=== PATIENT | female | born 1975 | race Two or more races ===

== ENCOUNTER 2018-11-15 07:45 | Inpatient (IN) | payer OTHER ==
[2018-11-15] MEDS ORDERED: ACETAMINOPHEN 1000 MG/100 ML VIAL (NON FORMULARY) IVPB ONE ×3 (08:12→22:00)
[2018-11-15] MEDS ORDERED: CEFTRIAXONE 2,000 MG in DEXTROSE 5%-WATER - 50 ML IVPB ONE (08:20)
[2018-11-15] MEDS ORDERED: ACETAMINOPHEN INJECTION 100 ML IVPB ONE ×2 (08:23→15:43)
[2018-11-15] MEDS ORDERED: CEFTRIAXONE 1 GM/50 ML BAG ONE (08:59)
[2018-11-15 09:09] LABS: BASO % 0.7 % (0-2.0); HEMATOCRIT 32.6 % (32.4-45.2); HEMOGLOBIN 11.2 GM/dL (10.7-15.3); LYMPH % 2.7 % (8-40); MCH 29.4 pg (25.7-33.7); MCHC 34.2 g/dl (32.0-36.0); MEAN CELL VOLUME 86.1 fl (80-96); MEAN PLT VOLUME 10.2 fl (7.5-11.1); NEUT % 92.6 % (42.8-82.8); PLATELET COUNT 175 K/MM3 (134-434); RBC 3.79 M/mm3 (3.60-5.2); RDW 13.5 % (11.6-15.6); WHITE BLOOD COUNT 6.7 K/mm3 (4.0-10.0)
[2018-11-15 09:14] LABS: VENOUS PH 7.46 (7.31-7.41)
[2018-11-15] MEDS ORDERED: SODIUM CHLORIDE 1,000 ML IV STA ×2 (09:14→11:03)
[2018-11-15 09:23] LABS: INR 1.34 (0.83-1.09); PROTHROMBIN TIME (PATIENT) 15.8 SEC (9.7-13.0)
[2018-11-15 09:26] LABS: ACTIVATED PTT 28.5 SECONDS (25.2-36.5)
[2018-11-15 09:40] LABS: ALBUMIN 2.8 g/dl (3.4-5.0); BILIRUBIN,TOTAL 0.6 mg/dL (0.2-1); BLOOD UREA NITROGEN 10.7 mg/dL (7-18); CALCIUM 7.6 mg/dL (8.5-10.1); CREATININE 0.6 mg/dL (0.55-1.3); POTASSIUM 3.4 mmol/L (3.5-5.1); TOT PROT 5.5 g/dl (6.4-8.2)
[2018-11-15 09:52] LABS: HYALINE CASTS 0 /lpf (0-8); PH,URINE 5.5 (5.0-8.0); URINE APPEARANCE CLOUDY; URINE BILIRUBIN NEGATIVE (NEGATIVE); URINE COLOR YELLOW; URINE GLUCOSE (UA) 3+ (NEGATIVE); URINE KETONE 3+ (NEGATIVE); URINE LEUK ESTERASE TRACE (NEGATIVE); URINE NITRITE POSITIVE (NEGATIVE); URINE PROTEIN 1+ (NEGATIVE); URINE RBC 1251 /hpf (0-4); URINE WBC 35 /hpf (0-5)
--- NOTE | 2018-11-15 10:58 | PDOC ---
Documentation entered by Allen Bradshaw SCRIBE, acting as scribe for Tano Rene MD. Tano Rene MD: This documentation has been prepared by the Augustine seo Daniel, SCRIBE, under my direction and personally reviewed by me in its entirety. I confirm that the documentation accurately reflects all work, treatment, procedures, and medical decision making performed by me. History of Present Illness - General Stated Complaint: DIABETIC History Source: Patient, EMS, Family Exam Limitations: No Limitations - History of Present Illness Initial Comments: 11/15/18 08:20 The patient is a year old female with a past medical history of diabetes brought in today by EMS for evaluation of AMS. The patient reports that she ran out of insulin 2 weeks ago and has not taken any since. As per EMS, the patient was unresponsive and hypotensive at home. Patient notes a headache which started yesterday and radiates from the left side of her head to the back of her head. She also notes back pain which is worse with deep breaths. Daughter notes that the patient was shivering at home as well. Patient denies lightheadedness. Denies fever, chills. Denies chest pain. Denies nausea, vomiting, diarrhea, abdominal pain. Denies travel. Allergies: ibuprofen Social history: Denies tobacco, alcohol, and illicit drug use. Past History - Past Medical History Allergies/Adverse Reactions: Allergies Allergy/AdvReac Type Severity Reaction Status Date / Time ibuprofen Allergy Severe Difficulty Verified 11/15/18 08:12 Breathing Home Medications: Ambulatory Orders Glimepiride 2 mg PO DAILY 10/01/15 metFORMIN HCL [Metformin HCl] 1,000 mg PO BID 10/01/15 Diabetes: Yes - Immunization History Immunization Up to Date: Yes - Psycho Social/Smoking Cessation Hx Smoking History: Never smoked Hx Alcohol Use: No Drug/Substance Use Hx: No Substance Use Type: None Review of Systems - Review of Systems Able to Perform ROS?: Yes Comments:: 11/15/18 08:20 CONSTITUTIONAL: +chills. No fever, no fatigue EYES: No visual changes ENT: No ear pain, no sore throat CARDIOVASCULAR: No chest pain, no palpitations RESPIRATORY: No cough, no SOB GI: No abdominal pain, no nausea, no vomiting, no constipation, no diarrhea GENITOURINARY: No dysuria, no frequency, no hematuria MUSKULOSKELETAL: +back pain. No joint pain, no myalgias SKIN: No rash NEURO: +headache *Physical Exam - Vital Signs Last Vital Signs Temp Pulse Resp BP Pulse Ox 103.6 F H 117 H 28 H 101/61 98 11/15/18 08:00 11/15/18 09:16 11/15/18 09:16 11/15/18 09:16 11/15/18 09:16 - Physical Exam Comments: 11/15/18 08:21 CONSTITUTIONAL: Well-appearing; well-nourished; in no apparent distress HEAD: Normocephalic; atraumatic EYES: PERRL; EOM intact; no photophobia ENMT: +dry mucous membranes. External appears normal; normal oropharynx NECK: supple. non-tender; no cervical lymphadenopathy CARD: Normal S1, S2; no murmurs, rubs, or gallops RESP: Normal chest excursion with respiration; breath sounds clear and equal bilaterally; no wheezes, rhonchi, or rales ABD: +mild left lower quadrant tenderness to deep palpation without guarding or rebound. Soft, non-distended; no palpable organomegaly, no palpable hernias EXT: Normal ROM in all four extremities; non-tender to palpation; distal pulses intact SKIN: Warm, dry, no rash NEURO: No focal neurological deficiencies. 11/15/18 10:15 on reassessment there are no more meningeal signs and mild suprapubic tenderness to palpation. Heart Score/ECG Review - ECG Intrepretation Comment:: 11/15/18 08:21 Sinus tachycadria ED Treatment Course - LABORATORY CBC & Chemistry Diagram: 11/15/18 08:36 11/15/18 08:36 - ADDITIONAL ORDERS Additional order review: Laboratory Results 11/15/18 07:54 POC Glucometer 411 11/15/18 07:54 POC Glucometer 411 - RADIOLOGY Radiology Studies Ordered: Category Date Time Status HEAD CT WITHOUT CONTRAST [CT] Stat CT Scan 11/15/18 08:20 Completed CHEST X-RAY PORTABLE* [RAD] Stat Radiology 11/15/18 08:11 Completed - Medications Given in the ED: ED Medications Discontinued Medications Generic Name Dose Route Start Last Admin Trade Name Freq PRN Reason Stop Dose Admin Acetaminophen 1,000 mg 11/15/18 08:12 11/15/18 08:30 Ofirmev Injection - IVPB 11/15/18 08:13 1,000 mg ONCE ONE Administration Ceftriaxone Sodium 2,000 mg/ 50 mls @ 100 mls/hr 11/15/18 08:20 11/15/18 09: 01 Dextrose IVPB 11/15/18 08:49 100 mls/hr ONCE ONE Administration Sodium Chloride 1,000 mls @ 1,000 mls/hr 11/15/18 09:14 11/15/18 09:21 Normal Saline - IV 11/15/18 10:13 1,000 mls/hr ASDIR STA Administration Medical Decision Making - Critical Care Time Total Critical Care Time (minutes): 50 Critical Care Statement: The care of this patient involved high complexity decision making to prevent further life threatening deterioration of the patient 's condition and/or to evaluate & treat vital organ system(s) failure or risk of failure. - Medical Decision Making 11/15/18 10:55 Patient is an ill-appearing 43-year-old female with history of diabetes who has been noncompliant with her insulin regimen (patient reports that she has been taking glyburide and metformin as prescribed) for the past 2 weeks. Upon arrival, patient was noted to be somnolent but easily arousable, follows commands, without evidence of meningismus, febrile to 103.6 and tachycardic with a heart rate of 120. EKG reveals evidence of sinus tachycardia but no other abnormalities. Serial abdominal exams revealed mild suprapubic tenderness only. Chest x-ray reveals no evidence of infiltrate or effusion. CBC reveals no significant leukocytosis, neutrophilia is noted. CMP reveals indeterminate troponin, but normal renal and hepatic functions. Urinalysis is consistent with nitrate positive pyuria. patient is received IV ceftriaxone. 2 L of normal saline have been administered as well. Anion gap is noted to be 11 and no indication for insulin drip are present at this time. DKA is also highly unlikely. Presence of beta hydroxybutyrate is consistent with elevated ketone bodies. We will continue to hydrate. Will administer cutaneous insulin. Will admit. 11/15/18 12:20 Patient is received 3 L of normal saline. Patient's blood pressure remains labile. Last known blood pressure is noted to be 97/61 with the MA P of 71. Will screen for the ICU for urosepsis and dehydration. 11/15/18 13:28 Patient accepted to the ICU. Patient's blood pressure remains labile. Will continue IV fluid boluses. Will place central line for possible pressor support. 11/15/18 15:48 Patient with Reiger's. Repeat rectal temp noted to be 1-1.8. Will administer additional IV acetaminophen. We will continue to hydrate. Central line placement confirmed by x-ray. No evidence of pneumothorax noted. Awaiting bed placement in the ICU. Discharge - Discharge Information Problems reviewed: Yes Clinical Impression/Diagnosis: Dehydration, Hyperglycemia Sepsis Qualifiers: Sepsis type: sepsis due to unspecified organism Sepsis acute organ dysfunction status: unspecified Qualified Code(s): A41.9 - Sepsis, unspecified organism Condition: Fair - Admission Yes - Follow up/Referral - Patient Discharge Instructions - Post Discharge Activity
[2018-11-15 11:00] LABS: ANISOCYTOSIS 0; MACROCYTOSIS 0; PLATELET ESTIMATE NORMAL
[2018-11-15] MEDS ORDERED: INSULIN REGULAR HUMAN 100 UNITS/ML *VIAL SQ ONE (11:04)
--- NOTE | 2018-11-15 12:11 | EKG ---
Test Reason : Blood Pressure : / mmHG Vent. Rate : 125 BPM Atrial Rate : 125 BPM P-R Int : 156 ms QRS Dur : 068 ms QT Int : 300 ms P-R-T Axes : 036 008 040 degrees QTc Int : 433 ms SINUS TACHYCARDIA OTHERWISE NORMAL ECG WHEN COMPARED WITH ECG OF 13-JUN-2013 23:09, NO SIGNIFICANT CHANGE WAS FOUND Confirmed by ZACK KHAN MD ([id number]) on 11/15/2018 12:11:04 PM Referred By: Confirmed By:ZACK KHAN MD
[2018-11-15] MEDS ORDERED: POTASSIUM CHLORIDE TABS 20 MEQ TABLET.ER (FP) PO ONE ×2 (12:28→14:05)
[2018-11-15] MEDS ORDERED: DEXTROSE 5%-0.45% SALINE 1,000 ML IV SCH (12:30)
[2018-11-15] MEDS ORDERED: SODIUM CHLORIDE 1,000 ML IV SCH (12:30)
--- NOTE | 2018-11-15 14:09 | CONSULT ---
Consultation: REQUESTING PROVIDER: Dr. Rnee CONSULT REQUEST: We have been asked to medically evaluate this patient for persistent hypotension HISTORY OF PRESENT ILLNESS: 43 y/o F with PMH IDDM and asthma (currently not on tx), who presented after being found unresponsive today. Per daughter, over the last two weeks, pt did not take her insulin since "it had not been refrigerated". During this past week , she felt unwell, and more acutely lethargic with chills today. Daughter states pt was lying down in bed when she became to shiver uncontrollably and then she became unresponsive. EMS was called and on arrival, pt w/ BP systolic in 70's. In [facility] ED, she was found to have a temp of 103.6F, labile BP ~80/50, tachycardic to 120's, and received 3L boluses without adequate improvement in BP. During this time, pt also endorses sharp L sided headache, which she describes as throbbing. Also with high subjective fever at home, mild dysuria and pleuritic chest pain. No photophobia or focal neurological deficits. Denies recent travel, sick contacts, SOB, chest pain or pressure or changes in bowel function. ICU consulted for persistent hypotension, despite 3L NS boluses and cont'd lethargy. +R IJ placed in ER. PMH: as above PsxH: denies meds: metformin 1000mg BID, glyburide 2mg qd, lantus 16mg qd per daughter allergies: ibuprofen - low BP FH: grandparents - DM SH: stay at mom . denies cigarette, alcohol, recreational use REVIEW OF SYSTEMS: +SORTO +dysuria +fever PHYSICAL EXAMINATION Vital Signs 11/15/18 11/15/18 11/15/18 10:39 10:55 11:49 Temperature 98.7 F Pulse Rate Pulse Rate [ 103 H 105 H 98 H Left Radial] Respiratory 18 18 20 Rate Blood Pressure Blood Pressure 97/61 97/62 87/59 L [Right Arm] O2 Sat by Pulse 97 98 97 Oximetry (%) 11/15/18 11/15/18 12:02 12:18 Temperature Pulse Rate Pulse Rate [ 101 H Left Radial] Respiratory 20 14 Rate Blood Pressure Blood Pressure 97/61 [Right Arm] O2 Sat by Pulse 97 100 Oximetry (%) GENERAL: Lethargic. in NAD HEAD: Normal with no signs of trauma. EYES: Pupils equal, round and reactive to light, extraocular movements intact, sclera anicteric, conjunctiva clear. EARS, NOSE, THROAT: Ears normal, nares patent, oropharynx clear without exudates. Moist mucous membranes. NECK: Normal range of motion, supple LUNGS: Breath sounds equal, clear to auscultation bilaterally. No wheezes, and no crackles. HEART: +tachycardic rate and rhythm, normal S1 and S2 without murmur, rub or gallop. ABDOMEN: Soft, +suprapubic tenderness, not distended, normoactive bowel sounds, no guarding LOWER EXTREMITIES: 2+ pt pulses, warm, no peripheral edema. NEUROLOGICAL: Cranial nerves II-XII intact. Normal speech. Lethargic PSYCHIATRIC: Cooperative. SKIN: Warm, dry Laboratory Results 11/15/18 11/15/18 11/15/18 08:36 08:36 08:36 WBC 6.7 Hgb 11.2 Hct 32.6 Plt Count 175 D Sodium 137 Potassium 3.4 L Chloride 106 Carbon Dioxide 21 BUN 10.7 Creatinine 0.6 Troponin I 0.19 H Beta-Hydroxybutyrate 26.1 H Urine Nitrite Urine WBC (Auto) Urine Bacteria (Auto) 11/15/18 09:03 Beta-Hydroxybutyrate Urine Nitrite Positive H D Urine WBC (Auto) 35 Urine Bacteria (Auto) 1777.0 EKG: +sinus tach, rate 125 bpm, qtc 433ms CXR: without acute abnormality Head CT: (-) ASSESSMENT/PLAN: 43 y/o F with PMH IDDM and asthma (currently not on tx), who presented after being found unresponsive today. In [facility] ED, she was found to have a temp of 103.6F, labile BP ~80/50, tachycardia to 120's, and received 3L boluses without adequate improvement in BP. ICU consulted for persistent hypotension, despite 3L NS boluses and cont'd lethargy. #Neuro -AAO x 3, however lethargic #ID R/o septic shock 2/2 UTI -with dysuria. initially febrile to 103.6F, hypotensive despite 3L NS -may require pressor support. +R IJ placed in ER today (11/15) -f/u CVP; bolus as needed -c/w rocephin IVPB qd. received 2g in ED d/t concern for meningitis, however pt w/ improved status less likely -f/u ucx, blood cx, lactic -c/w IVF; NS 100 cc/hr -has possible demand ischemia #Cardio Demand ischemia possible 2/2 sepsis -initial trop 0.19. c/t trend until peak #Pulm R/o PE -CTA (-) for PE Asthma -currently not in exacerbation -will start ventolin PRN #Endocrine IDDM -f/u a1c -c/w ISS, BGM ACHS -hold home hypoglycemic agents #F/E/N IV NS 100 cc/hr continue to follow lytes Diabetic diet #Lines/tubes + R IJ placed 11/15 #Code status Full code #PPX DVT: hep 5k SQ tid #Dispo admitted to ICU Dispo: We will continue to follow the patient. Thank you for this consultative opportunity. Visit type - Emergency Visit Emergency Visit: Yes Care time: The patient presented to the Emergency Department on the above date and was hospitalized for further evaluation of their emergent condition. - New Patient This patient is new to me today: Yes Date on this admission: 11/15/18 - Critical Care Critical Care patient: Yes Total Critical Care Time (in minutes): 45 Critical Care Statement: The care of this patient involved high complexity decision making to prevent further life threatening deterioration of the patient 's condition and/or to evaluate & treat vital organ system(s) failure or risk of failure.
--- NOTE | 2018-11-15 14:10 | PDOC ---
*Physical Exam - Vital Signs Last Vital Signs Temp Pulse Resp BP Pulse Ox 98.7 F 101 H 14 97/61 100 11/15/18 10:55 11/15/18 12:18 11/15/18 12:18 11/15/18 12:18 11/15/18 12:18 ED Treatment Course - LABORATORY CBC & Chemistry Diagram: 11/15/18 08:36 11/15/18 08:36 - ADDITIONAL ORDERS Additional order review: Laboratory Results 11/15/18 11/15/18 11/15/18 10:57 09:03 09:02 PT with INR INR PTT (Actin FS) VBG pH POC VBG pCO2 POC VBG pO2 VBG HCO3 VBG O2 Sat (Win) VBG Base Excess Sodium Potassium Chloride Carbon Dioxide Anion Gap BUN Creatinine Est GFR (CKD-EPI)AfAm Est GFR (CKD-EPI)NonAf POC Glucometer 289 Random Glucose Lactic Acid 1.6 Calcium Total Bilirubin AST ALT Alkaline Phosphatase Troponin I Total Protein Albumin Beta-Hydroxybutyrate Serum , Qual Urine Color Yellow Urine Appearance Cloudy Urine pH 5.5 Ur Specific [place] 1.021 Urine Protein 1+ H Urine Glucose (UA) 3+ H Urine Ketones 3+ H Urine Blood 3+ H Urine Nitrite Positive H D Urine Bilirubin Negative Urine Urobilinogen 1.0 Ur Leukocyte Esterase Trace Urine WBC (Auto) 35 Urine RBC (Auto) 1251 Urine Casts (Auto) 0 U Epithel Cells (Auto) 1.0 Urine Bacteria (Auto) 1777.0 11/15/18 11/15/18 11/15/18 08:36 08:36 08:36 PT with INR INR PTT (Actin FS) VBG pH 7.46 H POC VBG pCO2 26.0 L POC VBG pO2 147 H VBG HCO3 18.4 L VBG O2 Sat (Win) 97.3 H VBG Base Excess -3.8 L Sodium Potassium Chloride Carbon Dioxide Anion Gap BUN Creatinine Est GFR (CKD-EPI)AfAm Est GFR (CKD-EPI)NonAf POC Glucometer Random Glucose Lactic Acid Calcium Total Bilirubin AST ALT Alkaline Phosphatase Troponin I Total Protein Albumin Beta-Hydroxybutyrate 26.1 H Serum , Qual Negative Urine Color Urine Appearance Urine pH Ur Specific [place] Urine Protein Urine Glucose (UA) Urine Ketones Urine Blood Urine Nitrite Urine Bilirubin Urine Urobilinogen Ur Leukocyte Esterase Urine WBC (Auto) Urine RBC (Auto) Urine Casts (Auto) U Epithel Cells (Auto) Urine Bacteria (Auto) 11/15/18 11/15/18 11/15/18 08:36 08:36 07:54 PT with INR 15.80 H INR 1.34 H PTT (Actin FS) 28.5 VBG pH POC VBG pCO2 POC VBG pO2 VBG HCO3 VBG O2 Sat (Win) VBG Base Excess Sodium 137 Potassium 3.4 L Chloride 106 Carbon Dioxide 21 Anion Gap 11 BUN 10.7 Creatinine 0.6 Est GFR (CKD-EPI)AfAm 129.39 Est GFR (CKD-EPI)NonAf 111.64 POC Glucometer 411 Random Glucose 354 H Lactic Acid Calcium 7.6 L Total Bilirubin 0.6 AST 20 ALT 22 Alkaline Phosphatase 117 Troponin I 0.19 H Total Protein 5.5 L Albumin 2.8 L Beta-Hydroxybutyrate Serum , Qual Urine Color Urine Appearance Urine pH Ur Specific [place] Urine Protein Urine Glucose (UA) Urine Ketones Urine Blood Urine Nitrite Urine Bilirubin Urine Urobilinogen Ur Leukocyte Esterase Urine WBC (Auto) Urine RBC (Auto) Urine Casts (Auto) U Epithel Cells (Auto) Urine Bacteria (Auto) 11/15/18 11/15/18 11/15/18 10:57 08:36 07:54 RBC 3.79 MCV 86.1 MCHC 34.2 RDW 13.5 MPV 10.2 Neutrophils % 92.6 H D Lymphocytes % 2.7 L D Monocytes % 4.0 Eosinophils % 0.0 D Basophils % 0.7 POC Glucometer 289 411 - Medications Given in the ED: ED Medications Discontinued Medications Generic Name Dose Route Start Last Admin Trade Name Mikki PRN Reason Stop Dose Admin Acetaminophen 1,000 mg 11/15/18 08:12 11/15/18 08:30 Ofirmev Injection - IVPB 11/15/18 08:13 1,000 mg ONCE ONE Administration Ceftriaxone Sodium 2,000 mg/ 50 mls @ 100 mls/hr 11/15/18 08:20 11/15/18 09: 01 Dextrose IVPB 11/15/18 08:49 100 mls/hr ONCE ONE Administration Sodium Chloride 1,000 mls @ 1,000 mls/hr 11/15/18 09:14 11/15/18 09:21 Normal Saline - IV 11/15/18 10:13 1,000 mls/hr ASDIR STA Administration Sodium Chloride 1,000 mls @ 1,000 mls/hr 11/15/18 11:03 11/15/18 11:15 Normal Saline - IV 11/15/18 12:02 1,000 mls/hr ASDIR STA Administration Insulin Human Regular 5 units 11/15/18 11:04 11/15/18 11:51 Novolin R Vial *For Ivpush Or Iv Drip Only* SQ 11/15/18 11:05 5 units ONCE ONE Administration Medical Decision Making - Medical Decision Making 11/15/18 14:10 Central line placed as below. Discharge - Discharge Information Problems reviewed: Yes Clinical Impression/Diagnosis: Infection - Follow up/Referral Referrals: Liudmila Lee MD [Primary Care Provider] - - Patient Discharge Instructions - Post Discharge Activity Procedures - Central Line Central Line Lumen: triple Central Line Position: internal jugular (R) Anesthesia: 1% Lidocaine Amount of anesthesia (ccs): 2 Complications: none Post Central Line Insertion: sutured, good blood return, position confirmed w/ CXR
[2018-11-15] MEDS: SODIUM CHLORIDE 1,000 ML IV SCH (14:11)
[2018-11-15] MEDS: HEPARIN NA (PORCINE) 5,000 UNITS/ML 1ML VIAL SQ SCH ×2 (14:12→17:36)
[2018-11-15] MEDS ORDERED: ALBUTEROL SO4 0.083% IH SOL 2.5 MG/3 ML VIAL.NEB. NEB PRN (14:41)
[2018-11-15] MEDS: INSULIN SLIDING SCALE (NOVOLOG) 1 VIAL SQ SCH ×2 (16:37→22:36)
[2018-11-15 16:44] VITALS: BMI 23.3
[2018-11-15] MEDS ORDERED: FLU VACCINE QUAD 60 MCG/0.5 ML (MDV 19-20) IM ONE (16:46)
--- NOTE | 2018-11-15 19:50 | HP ---
Admitting History and Physical - Primary Care Physician PCP: Tiffanie Medrano - Admission History of Present Illness: The patient is a year old female with a past medical history of diabetes brought in today by EMS for evaluation of AMS. The patient reports that she ran out of insulin 2 weeks ago and has not taken any since. As per EMS, the patient was unresponsive and hypotensive at home. Patient notes a headache which started yesterday and radiates from the left side of her head to the back of her head. She also notes back pain which is worse with deep breaths. Daughter notes that the patient was shivering at home as well. - Past Medical History ...: No - Smoking History Smoking history: Never smoked Have you smoked in the past 12 months: No - Alcohol/Substance Use Hx Alcohol Use: No Home Medications - Allergies Allergies/Adverse Reactions: Allergies Allergy/AdvReac Type Severity Reaction Status Date / Time ibuprofen Allergy Severe Difficulty Verified 11/15/18 08:12 Breathing - Home Medications Home Medications: Ambulatory Orders Glimepiride 2 mg PO DAILY 10/01/15 metFORMIN HCL [Metformin HCl] 1,000 mg PO BID 10/01/15 Physical Examination Vital Signs: Vital Signs Temperature 101.3 F H 11/15/18 15:55 Pulse Rate 120 H 11/15/18 18:00 Respiratory Rate 18 11/15/18 18:00 Blood Pressure 112/68 11/15/18 18:00 O2 Sat by Pulse Oximetry (%) 100 11/15/18 15:55 Constitutional: Yes: No Distress HENT: Yes: Atraumatic Neck: Yes: Supple Cardiovascular: Yes: Regular Rate and Rhythm Respiratory: Yes: CTA Bilaterally Gastrointestinal: Yes: Normal Bowel Sounds Extremities: Yes: WNL Edema: No Neurological: Yes: Alert, Oriented Labs: CBC, BMP 11/15/18 08:36 11/15/18 08:36 Problem List - Problems (1) Dehydration Assessment/Plan: ivf Code(s): E86.0 - DEHYDRATION (2) Hyperglycemia Assessment/Plan: iv insulin bgms Code(s): R73.9 - HYPERGLYCEMIA, UNSPECIFIED (3) Sepsis Assessment/Plan: iv abx cxs noted Code(s): A41.9 - SEPSIS, UNSPECIFIED ORGANISM Qualifiers: Sepsis type: sepsis due to unspecified organism Sepsis acute organ dysfunction status: unspecified Qualified Code(s): A41.9 - Sepsis, unspecified organism (4) UTI (urinary tract infection) Code(s): N39.0 - URINARY TRACT INFECTION, SITE NOT SPECIFIED Assessment/Plan Laboratory Tests 11/15/18 11/15/18 11/15/18 07:54 08:36 08:36 WBC 6.7 RBC 3.79 Hgb 11.2 Hct 32.6 MCV 86.1 MCH 29.4 MCHC 34.2 RDW 13.5 Plt Count 175 D MPV 10.2 Absolute Neuts (auto) 6.2 Neutrophils % 92.6 H D Neutrophils % (Manual) 88.0 H Band Neutrophils % 6.0 Lymphocytes % 2.7 L D Lymphocytes % (Manual) 2.0 L Monocytes % 4.0 Monocytes % (Manual) 2 L Eosinophils % 0.0 D Eosinophils % (Manual) 0.0 Basophils % 0.7 Basophils % (Manual) 1.0 Myelocytes % (Man) 0 Promyelocytes % (Man) 0 Blast Cells % (Manual) 0 Nucleated RBC % 0 Metamyelocytes 0 Hypochromia 0 Platelet Estimate Normal Polychromasia 0 Poikilocytosis 0 Anisocytosis 0 Microcytosis 0 Macrocytosis 0 PT with INR 15.80 H INR 1.34 H PTT (Actin FS) 28.5 VBG pH POC VBG pCO2 POC VBG pO2 VBG HCO3 VBG O2 Sat (Win) VBG Base Excess Sodium Potassium Chloride Carbon Dioxide Anion Gap BUN Creatinine Est GFR (CKD-EPI)AfAm Est GFR (CKD-EPI)NonAf POC Glucometer 411 Random Glucose Hemoglobin A1c % Lactic Acid Calcium Total Bilirubin AST ALT Alkaline Phosphatase Troponin I Total Protein Albumin Beta-Hydroxybutyrate Serum , Qual Urine Color Urine Appearance Urine pH Ur Specific [place] Urine Protein Urine Glucose (UA) Urine Ketones Urine Blood Urine Nitrite Urine Bilirubin Urine Urobilinogen Ur Leukocyte Esterase Urine WBC (Auto) Urine RBC (Auto) Urine Casts (Auto) U Epithel Cells (Auto) Urine Bacteria (Auto) HIV 1&2 Antibody Screen HIV P24 Antigen 11/15/18 11/15/18 11/15/18 08:36 08:36 08:36 WBC RBC Hgb Hct MCV MCH MCHC RDW Plt Count MPV Absolute Neuts (auto) Neutrophils % Neutrophils % (Manual) Band Neutrophils % Lymphocytes % Lymphocytes % (Manual) Monocytes % Monocytes % (Manual) Eosinophils % Eosinophils % (Manual) Basophils % Basophils % (Manual) Myelocytes % (Man) Promyelocytes % (Man) Blast Cells % (Manual) Nucleated RBC % Metamyelocytes Hypochromia Platelet Estimate Polychromasia Poikilocytosis Anisocytosis Microcytosis Macrocytosis PT with INR INR PTT (Actin FS) VBG pH 7.46 H POC VBG pCO2 26.0 L POC VBG pO2 147 H VBG HCO3 18.4 L VBG O2 Sat (Win) 97.3 H VBG Base Excess -3.8 L Sodium 137 Potassium 3.4 L Chloride 106 Carbon Dioxide 21 Anion Gap 11 BUN 10.7 Creatinine 0.6 Est GFR (CKD-EPI)AfAm 129.39 Est GFR (CKD-EPI)NonAf 111.64 POC Glucometer Random Glucose 354 H Hemoglobin A1c % Lactic Acid Calcium 7.6 L Total Bilirubin 0.6 AST 20 ALT 22 Alkaline Phosphatase 117 Troponin I 0.19 H Total Protein 5.5 L Albumin 2.8 L Beta-Hydroxybutyrate 26.1 H Serum , Qual Urine Color Urine Appearance Urine pH Ur Specific [place] Urine Protein Urine Glucose (UA) Urine Ketones Urine Blood Urine Nitrite Urine Bilirubin Urine Urobilinogen Ur Leukocyte Esterase Urine WBC (Auto) Urine RBC (Auto) Urine Casts (Auto) U Epithel Cells (Auto) Urine Bacteria (Auto) HIV 1&2 Antibody Screen HIV P24 Antigen 11/15/18 11/15/18 11/15/18 08:36 09:02 09:03 WBC RBC Hgb Hct MCV MCH MCHC RDW Plt Count MPV Absolute Neuts (auto) Neutrophils % Neutrophils % (Manual) Band Neutrophils % Lymphocytes % Lymphocytes % (Manual) Monocytes % Monocytes % (Manual) Eosinophils % Eosinophils % (Manual) Basophils % Basophils % (Manual) Myelocytes % (Man) Promyelocytes % (Man) Blast Cells % (Manual) Nucleated RBC % Metamyelocytes Hypochromia Platelet Estimate Polychromasia Poikilocytosis Anisocytosis Microcytosis Macrocytosis PT with INR INR PTT (Actin FS) VBG pH POC VBG pCO2 POC VBG pO2 VBG HCO3 VBG O2 Sat (Win) VBG Base Excess Sodium Potassium Chloride Carbon Dioxide Anion Gap BUN Creatinine Est GFR (CKD-EPI)AfAm Est GFR (CKD-EPI)NonAf POC Glucometer Random Glucose Hemoglobin A1c % Lactic Acid 1.6 Calcium Total Bilirubin AST ALT Alkaline Phosphatase Troponin I Total Protein Albumin Beta-Hydroxybutyrate Serum , Qual Negative Urine Color Yellow Urine Appearance Cloudy Urine pH 5.5 Ur Specific [place] 1.021 Urine Protein 1+ H Urine Glucose (UA) 3+ H Urine Ketones 3+ H Urine Blood 3+ H Urine Nitrite Positive H D Urine Bilirubin Negative Urine Urobilinogen 1.0 Ur Leukocyte Esterase Trace Urine WBC (Auto) 35 Urine RBC (Auto) 1251 Urine Casts (Auto) 0 U Epithel Cells (Auto) 1.0 Urine Bacteria (Auto) 1777.0 HIV 1&2 Antibody Screen HIV P24 Antigen 11/15/18 11/15/18 11/15/18 09:05 10:57 13:50 WBC RBC Hgb Hct MCV MCH MCHC RDW Plt Count MPV Absolute Neuts (auto) Neutrophils % Neutrophils % (Manual) Band Neutrophils % Lymphocytes % Lymphocytes % (Manual) Monocytes % Monocytes % (Manual) Eosinophils % Eosinophils % (Manual) Basophils % Basophils % (Manual) Myelocytes % (Man) Promyelocytes % (Man) Blast Cells % (Manual) Nucleated RBC % Metamyelocytes Hypochromia Platelet Estimate Polychromasia Poikilocytosis Anisocytosis Microcytosis Macrocytosis PT with INR INR PTT (Actin FS) VBG pH POC VBG pCO2 POC VBG pO2 VBG HCO3 VBG O2 Sat (Win) VBG Base Excess Sodium Potassium Chloride Carbon Dioxide Anion Gap BUN Creatinine Est GFR (CKD-EPI)AfAm Est GFR (CKD-EPI)NonAf POC Glucometer 289 Random Glucose Hemoglobin A1c % 13.3 H Lactic Acid Calcium Total Bilirubin AST ALT Alkaline Phosphatase Troponin I Total Protein Albumin Beta-Hydroxybutyrate Serum , Qual Urine Color Urine Appearance Urine pH Ur Specific [place] Urine Protein Urine Glucose (UA) Urine Ketones Urine Blood Urine Nitrite Urine Bilirubin Urine Urobilinogen Ur Leukocyte Esterase Urine WBC (Auto) Urine RBC (Auto) Urine Casts (Auto) U Epithel Cells (Auto) Urine Bacteria (Auto) HIV 1&2 Antibody Screen Negative HIV P24 Antigen Negative 11/15/18 11/15/18 11/15/18 14:30 14:31 16:29 WBC RBC Hgb Hct MCV MCH MCHC RDW Plt Count MPV Absolute Neuts (auto) Neutrophils % Neutrophils % (Manual) Band Neutrophils % Lymphocytes % Lymphocytes % (Manual) Monocytes % Monocytes % (Manual) Eosinophils % Eosinophils % (Manual) Basophils % Basophils % (Manual) Myelocytes % (Man) Promyelocytes % (Man) Blast Cells % (Manual) Nucleated RBC % Metamyelocytes Hypochromia Platelet Estimate Polychromasia Poikilocytosis Anisocytosis Microcytosis Macrocytosis PT with INR INR PTT (Actin FS) VBG pH POC VBG pCO2 POC VBG pO2 VBG HCO3 VBG O2 Sat (Win) VBG Base Excess Sodium Potassium Chloride Carbon Dioxide Anion Gap BUN Creatinine Est GFR (CKD-EPI)AfAm Est GFR (CKD-EPI)NonAf POC Glucometer 237 258 Random Glucose Hemoglobin A1c % Lactic Acid Calcium Total Bilirubin AST ALT Alkaline Phosphatase Troponin I 0.19 H Total Protein Albumin Beta-Hydroxybutyrate Serum , Qual Urine Color Urine Appearance Urine pH Ur Specific [place] Urine Protein Urine Glucose (UA) Urine Ketones Urine Blood Urine Nitrite Urine Bilirubin Urine Urobilinogen Ur Leukocyte Esterase Urine WBC (Auto) Urine RBC (Auto) Urine Casts (Auto) U Epithel Cells (Auto) Urine Bacteria (Auto) HIV 1&2 Antibody Screen HIV P24 Antigen Active Medications Generic Name Dose Route Start Last Admin Trade Name Freq PRN Reason Stop Dose Admin Albuterol Sulfate 1 amp 11/15/18 14:41 Ventolin 0.083% Nebulizer Soln - NEB Q4H PRN SHORT OF BREATH/WHEEZING Chlorhexidine Gluconate 1 applic 11/15/18 22:00 Hibiclens For Decolonization - TP HS PHILLIP Heparin Sodium (Porcine) 5,000 unit 11/15/18 14:00 11/15/18 17:36 Heparin - SQ 5,000 unit Q8H-IV PHILLIP Administration Sodium Chloride 1,000 mls @ 150 mls/hr 11/15/18 12:30 11/15/18 12:48 Normal Saline - IV 150 mls/hr ASDIR PHILLIP Administration Sodium Chloride 1,000 mls @ 100 mls/hr 11/15/18 14:00 11/15/18 14:11 Normal Saline - IV 100 mls/hr ASDIR PHILLIP Administration Ceftriaxone Sodium 1 gm/ 50 mls @ 100 mls/hr 11/16/18 10:00 Dextrose IVPB DAILY PHILLIP Insulin Aspart 1 vial 11/15/18 16:30 11/15/18 16:37 Novolog Vial Sliding Scale - SQ 6 units ACHS PHILLIP Administration Protocol Mupirocin 1 applic 11/15/18 22:00 Bactroban Ointment (For Decolonization) - NS 11/20/18 21:59 BID PHILLIP
[2018-11-15] MEDS: CHLORHEXIDINE GLUCONATE 4% CLEANSER FOR DECOLONIZATION TP SCH (22:15)
[2018-11-15] MEDS: MUPIROCIN 2% TOPICAL OINTMENT FOR DECOLONIZATION NS SCH (22:39)
[2018-11-16] MEDS: HEPARIN NA (PORCINE) 5,000 UNITS/ML 1ML VIAL SQ SCH ×3 (02:36→18:55)
[2018-11-16] MEDS ORDERED: ACETAMINOPHEN 1000 MG/100 ML VIAL (NON FORMULARY) IVPB ONE ×2 (05:22→11:46)
[2018-11-16] MEDS: INSULIN SLIDING SCALE (NOVOLOG) 1 VIAL SQ SCH ×4 (06:06→22:55)
[2018-11-16 06:40] LABS: HEMATOCRIT 30.2 % (32.4-45.2); HEMOGLOBIN 10.5 GM/dL (10.7-15.3); LYMPH % 7.4 % (8-40); MCH 29.9 pg (25.7-33.7); MCHC 34.8 g/dl (32.0-36.0); MEAN PLT VOLUME 10.2 fl (7.5-11.1); MONO % 6.5 % (3.8-10.2); NEUT % 85.1 % (42.8-82.8); PLATELET COUNT 158 K/MM3 (134-434); RBC 3.51 M/mm3 (3.60-5.2); RDW 13.5 % (11.6-15.6); WHITE BLOOD COUNT 4.7 K/mm3 (4.0-10.0)
[2018-11-16 06:54] LABS: BLOOD UREA NITROGEN 3.7 mg/dL (7-18); CALCIUM 7.5 mg/dL (8.5-10.1); CREATININE 0.4 mg/dL (0.55-1.3); MAGNESIUM 1.7 mg/dL (1.8-2.4); PHOSPHOROUS 1.4 mg/dL (2.5-4.9); POTASSIUM 3.3 mmol/L (3.5-5.1)
[2018-11-16] MEDS ORDERED: POTASSIUM CHLORIDE 20 MEQ PREMIX IVPB 100 ML IVPB ONE (07:45)
[2018-11-16] MEDS ORDERED: POTASSIUM PHOSPHATE 20 MM in SODIUM CHLORIDE 250 ML IVPB ONE (07:55)
[2018-11-16] MEDS ORDERED: MAGNESIUM SULF 50% (8.12 MEQ/2 ML-1 GM VIAL) IVPB ONE (07:56)
[2018-11-16] MEDS ORDERED: cefTRIAXone SODIUM 1 GM VIAL ONE (08:00)
[2018-11-16] MEDS ORDERED: MAGNESIUM 1GM/D5W - 1 GM/100 ML IVPB IVPB ONE (08:00)
[2018-11-16] MEDS ORDERED: DEXTROSE 5%-WATER - 50 ML IVPB ONE (08:01)
--- NOTE | 2018-11-16 08:32 | PN ---
Physical Exam: SUBJECTIVE: Patient seen and examined at bedside in the ICU. Reports that her abdominal pain has improved. Denies chest pain/shortness of breath. Alert and oriented x3. OBJECTIVE: Vital Signs Period Temp Pulse Resp BP Sys/Gastelum Pulse Ox Last 24 Hr 98.7 F-103 F 95-128 12-29 85-164/55-92 97-100 GENERAL: The patient is awake, alert, and fully oriented, in no acute distress. HEAD: Normal with no signs of trauma. EYES: PERRL, extraocular movements intact, sclera anicteric, conjunctiva clear. No ptosis. ENT: Ears normal, nares patent, oropharynx clear without exudates, moist mucous membranes. NECK: Trachea midline, full range of motion, supple. LUNGS: Breath sounds equal, clear to auscultation bilaterally, no wheezes, no crackles, no accessory muscle use. HEART: Regular rate and rhythm, S1, S2 without murmur, rub or gallop. ABDOMEN: Soft, nontender, nondistended, normoactive bowel sounds, no guarding, no rebound, no hepatosplenomegaly, no masses. EXTREMITIES: 2+ pulses, warm, well-perfused, no edema. NEUROLOGICAL: Cranial nerves II through XII grossly intact. PSYCH: Normal mood, normal affect. SKIN: Warm, dry, normal turgor, no rashes or lesions noted Laboratory Results - last 24 hr 11/15/18 11/15/18 11/15/18 08:36 08:36 08:36 WBC 6.7 RBC 3.79 Hgb 11.2 Hct 32.6 MCV 86.1 MCH 29.4 MCHC 34.2 RDW 13.5 Plt Count 175 D MPV 10.2 Absolute Neuts (auto) 6.2 Neutrophils % 92.6 H D Neutrophils % (Manual) 88.0 H Band Neutrophils % 6.0 Lymphocytes % 2.7 L D Lymphocytes % (Manual) 2.0 L Monocytes % 4.0 Monocytes % (Manual) 2 L Eosinophils % 0.0 D Eosinophils % (Manual) 0.0 Basophils % 0.7 Basophils % (Manual) 1.0 Myelocytes % (Man) 0 Promyelocytes % (Man) 0 Blast Cells % (Manual) 0 Nucleated RBC % 0 Metamyelocytes 0 Hypochromia 0 Platelet Estimate Normal Polychromasia 0 Poikilocytosis 0 Anisocytosis 0 Microcytosis 0 Macrocytosis 0 PT with INR 15.80 H INR 1.34 H PTT (Actin FS) 28.5 VBG pH POC VBG pCO2 POC VBG pO2 VBG HCO3 VBG O2 Sat (Win) VBG Base Excess Sodium 137 Potassium 3.4 L Chloride 106 Carbon Dioxide 21 Anion Gap 11 BUN 10.7 Creatinine 0.6 Est GFR (CKD-EPI)AfAm 129.39 Est GFR (CKD-EPI)NonAf 111.64 POC Glucometer Random Glucose 354 H Hemoglobin A1c % Lactic Acid Calcium 7.6 L Phosphorus Magnesium Total Bilirubin 0.6 AST 20 ALT 22 Alkaline Phosphatase 117 Troponin I 0.19 H Total Protein 5.5 L Albumin 2.8 L Beta-Hydroxybutyrate Serum , Qual Urine Color Urine Appearance Urine pH Ur Specific [place] Urine Protein Urine Glucose (UA) Urine Ketones Urine Blood Urine Nitrite Urine Bilirubin Urine Urobilinogen Ur Leukocyte Esterase Urine WBC (Auto) Urine RBC (Auto) Urine Casts (Auto) U Epithel Cells (Auto) Urine Bacteria (Auto) HIV 1&2 Antibody Screen HIV P24 Antigen 11/15/18 11/15/18 11/15/18 08:36 08:36 08:36 WBC RBC Hgb Hct MCV MCH MCHC RDW Plt Count MPV Absolute Neuts (auto) Neutrophils % Neutrophils % (Manual) Band Neutrophils % Lymphocytes % Lymphocytes % (Manual) Monocytes % Monocytes % (Manual) Eosinophils % Eosinophils % (Manual) Basophils % Basophils % (Manual) Myelocytes % (Man) Promyelocytes % (Man) Blast Cells % (Manual) Nucleated RBC % Metamyelocytes Hypochromia Platelet Estimate Polychromasia Poikilocytosis Anisocytosis Microcytosis Macrocytosis PT with INR INR PTT (Actin FS) VBG pH 7.46 H POC VBG pCO2 26.0 L POC VBG pO2 147 H VBG HCO3 18.4 L VBG O2 Sat (Iwn) 97.3 H VBG Base Excess -3.8 L Sodium Potassium Chloride Carbon Dioxide Anion Gap BUN Creatinine Est GFR (CKD-EPI)AfAm Est GFR (CKD-EPI)NonAf POC Glucometer Random Glucose Hemoglobin A1c % Lactic Acid Calcium Phosphorus Magnesium Total Bilirubin AST ALT Alkaline Phosphatase Troponin I Total Protein Albumin Beta-Hydroxybutyrate 26.1 H Serum , Qual Negative Urine Color Urine Appearance Urine pH Ur Specific [place] Urine Protein Urine Glucose (UA) Urine Ketones Urine Blood Urine Nitrite Urine Bilirubin Urine Urobilinogen Ur Leukocyte Esterase Urine WBC (Auto) Urine RBC (Auto) Urine Casts (Auto) U Epithel Cells (Auto) Urine Bacteria (Auto) HIV 1&2 Antibody Screen HIV P24 Antigen 11/15/18 11/15/18 11/15/18 09:02 09:03 09:05 WBC RBC Hgb Hct MCV MCH MCHC RDW Plt Count MPV Absolute Neuts (auto) Neutrophils % Neutrophils % (Manual) Band Neutrophils % Lymphocytes % Lymphocytes % (Manual) Monocytes % Monocytes % (Manual) Eosinophils % Eosinophils % (Manual) Basophils % Basophils % (Manual) Myelocytes % (Man) Promyelocytes % (Man) Blast Cells % (Manual) Nucleated RBC % Metamyelocytes Hypochromia Platelet Estimate Polychromasia Poikilocytosis Anisocytosis Microcytosis Macrocytosis PT with INR INR PTT (Actin FS) VBG pH POC VBG pCO2 POC VBG pO2 VBG HCO3 VBG O2 Sat (Win) VBG Base Excess Sodium Potassium Chloride Carbon Dioxide Anion Gap BUN Creatinine Est GFR (CKD-EPI)AfAm Est GFR (CKD-EPI)NonAf POC Glucometer Random Glucose Hemoglobin A1c % Lactic Acid 1.6 Calcium Phosphorus Magnesium Total Bilirubin AST ALT Alkaline Phosphatase Troponin I Total Protein Albumin Beta-Hydroxybutyrate Serum , Qual Urine Color Yellow Urine Appearance Cloudy Urine pH 5.5 Ur Specific [place] 1.021 Urine Protein 1+ H Urine Glucose (UA) 3+ H Urine Ketones 3+ H Urine Blood 3+ H Urine Nitrite Positive H D Urine Bilirubin Negative Urine Urobilinogen 1.0 Ur Leukocyte Esterase Trace Urine WBC (Auto) 35 Urine RBC (Auto) 1251 Urine Casts (Auto) 0 U Epithel Cells (Auto) 1.0 Urine Bacteria (Auto) 1777.0 HIV 1&2 Antibody Screen Negative HIV P24 Antigen Negative 11/15/18 11/15/18 11/15/18 10:57 13:50 14:30 WBC RBC Hgb Hct MCV MCH MCHC RDW Plt Count MPV Absolute Neuts (auto) Neutrophils % Neutrophils % (Manual) Band Neutrophils % Lymphocytes % Lymphocytes % (Manual) Monocytes % Monocytes % (Manual) Eosinophils % Eosinophils % (Manual) Basophils % Basophils % (Manual) Myelocytes % (Man) Promyelocytes % (Man) Blast Cells % (Manual) Nucleated RBC % Metamyelocytes Hypochromia Platelet Estimate Polychromasia Poikilocytosis Anisocytosis Microcytosis Macrocytosis PT with INR INR PTT (Actin FS) VBG pH POC VBG pCO2 POC VBG pO2 VBG HCO3 VBG O2 Sat (Win) VBG Base Excess Sodium Potassium Chloride Carbon Dioxide Anion Gap BUN Creatinine Est GFR (CKD-EPI)AfAm Est GFR (CKD-EPI)NonAf POC Glucometer 289 Random Glucose Hemoglobin A1c % 13.3 H Lactic Acid Calcium Phosphorus Magnesium Total Bilirubin AST ALT Alkaline Phosphatase Troponin I 0.19 H Total Protein Albumin Beta-Hydroxybutyrate Serum , Qual Urine Color Urine Appearance Urine pH Ur Specific [place] Urine Protein Urine Glucose (UA) Urine Ketones Urine Blood Urine Nitrite Urine Bilirubin Urine Urobilinogen Ur Leukocyte Esterase Urine WBC (Auto) Urine RBC (Auto) Urine Casts (Auto) U Epithel Cells (Auto) Urine Bacteria (Auto) HIV 1&2 Antibody Screen HIV P24 Antigen 11/15/18 11/15/18 11/15/18 14:31 16:29 22:31 WBC RBC Hgb Hct MCV MCH MCHC RDW Plt Count MPV Absolute Neuts (auto) Neutrophils % Neutrophils % (Manual) Band Neutrophils % Lymphocytes % Lymphocytes % (Manual) Monocytes % Monocytes % (Manual) Eosinophils % Eosinophils % (Manual) Basophils % Basophils % (Manual) Myelocytes % (Man) Promyelocytes % (Man) Blast Cells % (Manual) Nucleated RBC % Metamyelocytes Hypochromia Platelet Estimate Polychromasia Poikilocytosis Anisocytosis Microcytosis Macrocytosis PT with INR INR PTT (Actin FS) VBG pH POC VBG pCO2 POC VBG pO2 VBG HCO3 VBG O2 Sat (Win) VBG Base Excess Sodium Potassium Chloride Carbon Dioxide Anion Gap BUN Creatinine Est GFR (CKD-EPI)AfAm Est GFR (CKD-EPI)NonAf POC Glucometer 237 258 251 Random Glucose Hemoglobin A1c % Lactic Acid Calcium Phosphorus Magnesium Total Bilirubin AST ALT Alkaline Phosphatase Troponin I Total Protein Albumin Beta-Hydroxybutyrate Serum , Qual Urine Color Urine Appearance Urine pH Ur Specific [place] Urine Protein Urine Glucose (UA) Urine Ketones Urine Blood Urine Nitrite Urine Bilirubin Urine Urobilinogen Ur Leukocyte Esterase Urine WBC (Auto) Urine RBC (Auto) Urine Casts (Auto) U Epithel Cells (Auto) Urine Bacteria (Auto) HIV 1&2 Antibody Screen HIV P24 Antigen 11/15/18 11/16/1819 23:15 05:24 05:25 WBC 4.7 RBC 3.51 L Hgb 10.5 L Hct 30.2 L MCV 86.0 MCH 29.9 MCHC 34.8 RDW 13.5 Plt Count 158 MPV 10.2 Absolute Neuts (auto) 4.0 Neutrophils % 85.1 H Neutrophils % (Manual) Band Neutrophils % Lymphocytes % 7.4 L D Lymphocytes % (Manual) Monocytes % 6.5 Monocytes % (Manual) Eosinophils % 0.0 Eosinophils % (Manual) Basophils % 1.0 Basophils % (Manual) Myelocytes % (Man) Promyelocytes % (Man) Blast Cells % (Manual) Nucleated RBC % 0 Metamyelocytes Hypochromia Platelet Estimate Polychromasia Poikilocytosis Anisocytosis Microcytosis Macrocytosis PT with INR INR PTT (Actin FS) VBG pH POC VBG pCO2 POC VBG pO2 VBG HCO3 VBG O2 Sat (Win) VBG Base Excess Sodium Potassium Chloride Carbon Dioxide Anion Gap BUN Creatinine Est GFR (CKD-EPI)AfAm Est GFR (CKD-EPI)NonAf POC Glucometer 227 Random Glucose Hemoglobin A1c % Lactic Acid Calcium Phosphorus Magnesium Total Bilirubin AST ALT Alkaline Phosphatase Troponin I 0.10 H Total Protein Albumin Beta-Hydroxybutyrate Serum , Qual Urine Color Urine Appearance Urine pH Ur Specific [place] Urine Protein Urine Glucose (UA) Urine Ketones Urine Blood Urine Nitrite Urine Bilirubin Urine Urobilinogen Ur Leukocyte Esterase Urine WBC (Auto) Urine RBC (Auto) Urine Casts (Auto) U Epithel Cells (Auto) Urine Bacteria (Auto) HIV 1&2 Antibody Screen HIV P24 Antigen 11/16/18 05:25 WBC RBC Hgb Hct MCV MCH MCHC RDW Plt Count MPV Absolute Neuts (auto) Neutrophils % Neutrophils % (Manual) Band Neutrophils % Lymphocytes % Lymphocytes % (Manual) Monocytes % Monocytes % (Manual) Eosinophils % Eosinophils % (Manual) Basophils % Basophils % (Manual) Myelocytes % (Man) Promyelocytes % (Man) Blast Cells % (Manual) Nucleated RBC % Metamyelocytes Hypochromia Platelet Estimate Polychromasia Poikilocytosis Anisocytosis Microcytosis Macrocytosis PT with INR INR PTT (Actin FS) VBG pH POC VBG pCO2 POC VBG pO2 VBG HCO3 VBG O2 Sat (Win) VBG Base Excess Sodium 140 Potassium 3.3 L Chloride 110 H Carbon Dioxide 19 L Anion Gap 11 BUN 3.7 L Creatinine 0.4 L Est GFR (CKD-EPI)AfAm 147.85 Est GFR (CKD-EPI)NonAf 127.57 POC Glucometer Random Glucose 218 H Hemoglobin A1c % Lactic Acid Calcium 7.5 L Phosphorus 1.4 L Magnesium 1.7 L Total Bilirubin AST ALT Alkaline Phosphatase Troponin I Total Protein Albumin Beta-Hydroxybutyrate Serum , Qual Urine Color Urine Appearance Urine pH Ur Specific [place] Urine Protein Urine Glucose (UA) Urine Ketones Urine Blood Urine Nitrite Urine Bilirubin Urine Urobilinogen Ur Leukocyte Esterase Urine WBC (Auto) Urine RBC (Auto) Urine Casts (Auto) U Epithel Cells (Auto) Urine Bacteria (Auto) HIV 1&2 Antibody Screen HIV P24 Antigen Active Medications Generic Name Dose Route Start Last Admin Trade Name Freq PRN Reason Stop Dose Admin Albuterol Sulfate 1 amp 11/15/18 14:41 Ventolin 0.083% Nebulizer Soln - NEB Q4H PRN SHORT OF BREATH/WHEEZING Chlorhexidine Gluconate 1 applic 11/15/18 22:00 11/15/18 22:15 Hibiclens For Decolonization - TP 1 applic HS PHILLIP Administration Heparin Sodium (Porcine) 5,000 unit 11/15/18 14:00 11/16/18 02:36 Heparin - SQ 5,000 unit Q8H-IV PHILLIP Administration Sodium Chloride 1,000 mls @ 100 mls/hr 11/15/18 14:00 11/15/18 14:11 Normal Saline - IV 100 mls/hr ASDIR PHILLIP Administration Ceftriaxone Sodium 1 gm/ 50 mls @ 100 mls/hr 11/16/18 10:00 Dextrose IVPB DAILY PHILLIP Potassium Phosphate 20 mm/ 256.6667 mls @ 62.5 mls/hr 11/16/18 07:55 Sodium Chloride IVPB 11/16/18 12:01 ONCE ONE Insulin Aspart 1 vial 11/15/18 16:30 11/16/18 06:06 Novolog Vial Sliding Scale - SQ 4 units ACHS PHILLIP Administration Protocol Mupirocin 1 applic 11/15/18 22:00 11/15/18 22:39 Bactroban Ointment (For Decolonization) - NS 11/20/18 21:59 1 applic BID PHILLIP Administration ASSESSMENT/PLAN: 43 y/o F with PMH IDDM and asthma (currently not on tx), who presented after being found unresponsive today. In [facility] ED, she was found to have a temp of 103.6F, labile BP ~80/50, tachycardia to 120's, and received 3L boluses without adequate improvement in BP. ICU consulted for persistent hypotension, despite 3L NS boluses and cont'd lethargy. #Neuro -AAO x 3 #ID R/o septic shock 2/2 UTI -with dysuria. initially febrile to 103.6F, mildly hypotensive -f/u CVP; bolus as needed -c/w rocephin IVPB qd. received 2g in ED d/t concern for meningitis, however pt w/ improved status less likely -f/u ucx, blood cx, lactic -c/w IVF; NS 100 cc/hr -has possible demand ischemia -consider abd/pelv imaging if worsening #Cardio: Demand ischemia possible 2/2 sepsis -initial trop 0.04. c/t trend until peak -orthostatic BP negative #Pulm R/o PE -CTA (-) for PE -O2 supplementation PRN Asthma -currently not in exacerbation -will start ventolin PRN #Endocrine IDDM -f/u a1c -c/w ISS, BGM ACHS -hold home hypoglycemic agents -novolog SS #F/E/N IV NS 100 cc/hr continue to follow lytes Diabetic diet strict I/O #Lines/tubes + R IJ placed 11/15 #Code status Full code #PPX DVT: hep 5k SQ tid #Dispo admitted to ICU Visit type - Emergency Visit Emergency Visit: No - New Patient This patient is new to me today: No - Critical Care Critical Care patient: Yes Total Critical Care Time (in minutes): 35 Critical Care Statement: The care of this patient involved high complexity decision making to prevent further life threatening deterioration of the patient 's condition and/or to evaluate & treat vital organ system(s) failure or risk of failure. ATTENDING PHYSICIAN STATEMENT I saw and evaluated the patient. I reviewed the resident's note and discussed the case with the resident. I agree with the resident's findings and plan as documented. SUBJECTIVE: OBJECTIVE: ASSESSMENT AND PLAN:
--- NOTE | 2018-11-16 09:24 | CONSULT ---
Consult Consult Specialty:: Endocrinology Referred by:: Dr Medrano Reason for Consultation:: Hyperglycemia - History of Present Illness Chief Complaint: AMS History of Present Illness: This is a 43 y/o F with h/o DM since 2001 and asthma (currently not on tx), who presented after being found unresponsive today. Per daughter, over the last two weeks, pt did not take her insulin since "it had not been refrigerated". During this past week, she felt unwell, and more acutely lethargic with chills today. Daughter states pt was lying down in bed when she became to shiver uncontrollably and then she became unresponsive. EMS was called and on arrival, pt w/ BP systolic in 70's. In [facility] ED, she was found to have a temp of 103.6F, labile BP ~80/50, tachycardic to 120's, and received 3L boluses without adequate improvement in BP. During this time, pt also endorses sharp L sided headache, which she describes as throbbing. Also with high subjective fever at home, mild dysuria and pleuritic chest pain. No photophobia or focal neurological deficits. Denies recent travel, sick contacts, SOB, chest pain or pressure or changes in bowel function. ICU consulted for persistent hypotension , despite 3L NS boluses and cont'd lethargy. Pt transferred to ICU for further management. Pt referred for management of hyperglycemia - History Source History Provided By: Patient, Medical Record - Past Medical History ...: No Endocrine: Yes: Diabetes Mellitus - Alcohol/Substance Use Hx Alcohol Use: No - Smoking History Smoking history: Never smoked Have you smoked in the past 12 months: No Home Medications - Allergies Allergies/Adverse Reactions: Allergies Allergy/AdvReac Type Severity Reaction Status Date / Time ibuprofen Allergy Severe Difficulty Verified 11/15/18 08:12 Breathing - Home Medications Home Medications: Ambulatory Orders Glimepiride 2 mg PO DAILY 10/01/15 metFORMIN HCL [Metformin HCl] 1,000 mg PO BID 10/01/15 Review of Systems - Review of Systems Constitutional: reports: Loss of Appetite, Malaise Eyes: reports: No Symptoms HENT: reports: No Symptoms Neck: reports: No Symptoms Cardiovascular: reports: No Symptoms Respiratory: reports: No Symptoms Gastrointestinal: reports: No Symptoms Genitourinary: reports: No Symptoms Neurological: reports: No Symptoms Physical Exam Vital Signs: Vital Signs Temperature 102.2 F H 11/16/18 06:00 Pulse Rate 125 H 11/16/18 06:00 Respiratory Rate 26 H 11/16/18 06:00 Blood Pressure 103/55 L 11/16/18 06:00 O2 Sat by Pulse Oximetry (%) 100 11/15/18 20:55 Constitutional: Yes: No Distress, Calm Eyes: Yes: Conjunctiva Clear, EOM Intact HENT: Yes: Atraumatic, Normocephalic Neck: Yes: Supple, Trachea Midline Cardiovascular: Yes: Regular Rate and Rhythm Respiratory: Yes: Regular, CTA Bilaterally Gastrointestinal: Yes: Normal Bowel Sounds, Soft Musculoskeletal: Yes: WNL Extremities: Yes: WNL Edema: No Neurological: Yes: Alert Labs: CBC, BMP 11/16/18 05:25 11/16/18 05:25 Assessment/Plan A/P Sepsis due to a source DM Uncontrolled: A1c 13.3 Asthma S/P unresponsiveness IV hydration as necessary O2 as needed BGM QACHS Levemir 8 units Daily Novolog SS coverage Will F/u
[2018-11-16] MEDS ORDERED: CEFTRIAXONE 1 MG in DEXTROSE 5%-WATER - 50 ML IVPB SCH (10:00)
[2018-11-16] MEDS ORDERED: CEFTRIAXONE 1 GM in DEXTROSE 5%-WATER - 50 ML IVPB SCH (10:00)
[2018-11-16] MEDS ORDERED: ACETAMINOPHEN INJECTION 100 ML IVPB ONE (11:24)
[2018-11-16] MEDS: MUPIROCIN 2% TOPICAL OINTMENT FOR DECOLONIZATION NS SCH ×2 (11:44→22:54)
--- NOTE | 2018-11-16 12:17 | PN ---
Teaching Attending Note Name of Resident: Luis Carlos Malave ATTENDING PHYSICIAN STATEMENT I saw and evaluated the patient. I reviewed the resident's note and discussed the case with the resident. I agree with the resident's findings and plan as documented. SUBJECTIVE: Patient seen and examined in the ICU. Awake and alert. Abdominal discomfort is improving. No CP or SOB. OBJECTIVE: Intake & Output 11/13/18 11/14/18 11/15/18 11/16/18 23:59 23:59 23:59 23:59 Intake Total 2410 1400 Output Total 2100 3200 Balance 310 -1800 Weight 128 lb Last Vital Signs Temp Pulse Resp BP Pulse Ox 102.2 F H 100 H 26 H 97/57 L 100 11/16/18 06:00 11/16/18 08:00 11/16/18 08:00 11/16/18 08:00 11/15/18 20:55 Active Medications Acetaminophen (Tylenol -) 650 mg PO Q6H PRN PRN Reason: PAIN Albuterol Sulfate (Ventolin 0.083% Nebulizer Soln -) 1 amp NEB Q4H PRN PRN Reason: SHORT OF BREATH/WHEEZING Chlorhexidine Gluconate (Hibiclens For Decolonization -) 1 applic TP HS [facility] Last Admin: 11/15/18 22:15 Dose: 1 applic Heparin Sodium (Porcine) (Heparin -) 5,000 unit SQ Q8H-IV [facility] Last Admin: 11/16/18 10:45 Dose: 5,000 unit Sodium Chloride (Normal Saline -) 1,000 mls @ 100 mls/hr IV ASDIR [facility] Last Admin: 11/15/18 14:11 Dose: 100 mls/hr Ceftriaxone Sodium 1 gm/ (Dextrose) 50 mls @ 100 mls/hr IVPB DAILY [facility] Last Admin: 11/16/18 09:22 Dose: 100 mls/hr Insulin Aspart (Novolog Vial Sliding Scale -) 1 vial SQ ACHS [facility]; Protocol Last Admin: 11/16/18 11:58 Dose: 4 units Mupirocin (Bactroban Ointment (For Decolonization) -) 1 applic NS BID [facility] Stop: 11/20/18 21:59 Last Admin: 11/16/18 11:44 Dose: 1 applic GENERAL: The patient is awake, alert, and fully oriented, in no acute distress. HEAD: Normal with no signs of trauma. EYES: PERRL, extraocular movements intact, sclera anicteric, conjunctiva clear. No ptosis. ENT: Ears normal, nares patent, oropharynx clear without exudates, moist mucous membranes. NECK: Trachea midline, full range of motion, supple. LUNGS: Breath sounds equal, clear to auscultation bilaterally, no wheezes, no crackles HEART: Regular rate and rhythm, S1, S2 without murmur, rub or gallop. ABDOMEN: Soft, nontender, nondistended, normoactive bowel sounds, no guarding, no rebound, no hepatosplenomegaly, no masses. EXTREMITIES: 2+ pulses, warm, well-perfused, no edema. NEUROLOGICAL: non-focal PSYCH: Normal mood, normal affect. SKIN: Warm, dry, normal turgor, no rashes or lesions noted Laboratory Results - last 24 hr 11/15/18 11/15/18 11/15/18 08:36 08:36 08:36 WBC 6.7 RBC 3.79 Hgb 11.2 Hct 32.6 MCV 86.1 MCH 29.4 MCHC 34.2 RDW 13.5 Plt Count 175 D MPV 10.2 Absolute Neuts (auto) 6.2 Neutrophils % 92.6 H D Neutrophils % (Manual) 88.0 H Band Neutrophils % 6.0 Lymphocytes % 2.7 L D Lymphocytes % (Manual) 2.0 L Monocytes % 4.0 Monocytes % (Manual) 2 L Eosinophils % 0.0 D Eosinophils % (Manual) 0.0 Basophils % 0.7 Basophils % (Manual) 1.0 Myelocytes % (Man) 0 Promyelocytes % (Man) 0 Blast Cells % (Manual) 0 Nucleated RBC % 0 Metamyelocytes 0 Hypochromia 0 Platelet Estimate Normal Polychromasia 0 Poikilocytosis 0 Anisocytosis 0 Microcytosis 0 Macrocytosis 0 PT with INR 15.80 H INR 1.34 H PTT (Actin FS) 28.5 VBG pH POC VBG pCO2 POC VBG pO2 VBG HCO3 VBG O2 Sat (Win) VBG Base Excess Sodium 137 Potassium 3.4 L Chloride 106 Carbon Dioxide 21 Anion Gap 11 BUN 10.7 Creatinine 0.6 Est GFR (CKD-EPI)AfAm 129.39 Est GFR (CKD-EPI)NonAf 111.64 POC Glucometer Random Glucose 354 H Hemoglobin A1c % Lactic Acid Calcium 7.6 L Phosphorus Magnesium Total Bilirubin 0.6 AST 20 ALT 22 Alkaline Phosphatase 117 Troponin I 0.19 H Total Protein 5.5 L Albumin 2.8 L Beta-Hydroxybutyrate Serum , Qual Urine Color Urine Appearance Urine pH Ur Specific [place] Urine Protein Urine Glucose (UA) Urine Ketones Urine Blood Urine Nitrite Urine Bilirubin Urine Urobilinogen Ur Leukocyte Esterase Urine WBC (Auto) Urine RBC (Auto) Urine Casts (Auto) U Epithel Cells (Auto) Urine Bacteria (Auto) HIV 1&2 Antibody Screen HIV P24 Antigen 11/15/18 11/15/18 11/15/18 08:36 08:36 08:36 WBC RBC Hgb Hct MCV MCH MCHC RDW Plt Count MPV Absolute Neuts (auto) Neutrophils % Neutrophils % (Manual) Band Neutrophils % Lymphocytes % Lymphocytes % (Manual) Monocytes % Monocytes % (Manual) Eosinophils % Eosinophils % (Manual) Basophils % Basophils % (Manual) Myelocytes % (Man) Promyelocytes % (Man) Blast Cells % (Manual) Nucleated RBC % Metamyelocytes Hypochromia Platelet Estimate Polychromasia Poikilocytosis Anisocytosis Microcytosis Macrocytosis PT with INR INR PTT (Actin FS) VBG pH 7.46 H POC VBG pCO2 26.0 L POC VBG pO2 147 H VBG HCO3 18.4 L VBG O2 Sat (Win) 97.3 H VBG Base Excess -3.8 L Sodium Potassium Chloride Carbon Dioxide Anion Gap BUN Creatinine Est GFR (CKD-EPI)AfAm Est GFR (CKD-EPI)NonAf POC Glucometer Random Glucose Hemoglobin A1c % Lactic Acid Calcium Phosphorus Magnesium Total Bilirubin AST ALT Alkaline Phosphatase Troponin I Total Protein Albumin Beta-Hydroxybutyrate 26.1 H Serum , Qual Negative Urine Color Urine Appearance Urine pH Ur Specific [place] Urine Protein Urine Glucose (UA) Urine Ketones Urine Blood Urine Nitrite Urine Bilirubin Urine Urobilinogen Ur Leukocyte Esterase Urine WBC (Auto) Urine RBC (Auto) Urine Casts (Auto) U Epithel Cells (Auto) Urine Bacteria (Auto) HIV 1&2 Antibody Screen HIV P24 Antigen 11/15/18 11/15/18 11/15/18 09:02 09:03 09:05 WBC RBC Hgb Hct MCV MCH MCHC RDW Plt Count MPV Absolute Neuts (auto) Neutrophils % Neutrophils % (Manual) Band Neutrophils % Lymphocytes % Lymphocytes % (Manual) Monocytes % Monocytes % (Manual) Eosinophils % Eosinophils % (Manual) Basophils % Basophils % (Manual) Myelocytes % (Man) Promyelocytes % (Man) Blast Cells % (Manual) Nucleated RBC % Metamyelocytes Hypochromia Platelet Estimate Polychromasia Poikilocytosis Anisocytosis Microcytosis Macrocytosis PT with INR INR PTT (Actin FS) VBG pH POC VBG pCO2 POC VBG pO2 VBG HCO3 VBG O2 Sat (Win) VBG Base Excess Sodium Potassium Chloride Carbon Dioxide Anion Gap BUN Creatinine Est GFR (CKD-EPI)AfAm Est GFR (CKD-EPI)NonAf POC Glucometer Random Glucose Hemoglobin A1c % Lactic Acid 1.6 Calcium Phosphorus Magnesium Total Bilirubin AST ALT Alkaline Phosphatase Troponin I Total Protein Albumin Beta-Hydroxybutyrate Serum , Qual Urine Color Yellow Urine Appearance Cloudy Urine pH 5.5 Ur Specific [place] 1.021 Urine Protein 1+ H Urine Glucose (UA) 3+ H Urine Ketones 3+ H Urine Blood 3+ H Urine Nitrite Positive H D Urine Bilirubin Negative Urine Urobilinogen 1.0 Ur Leukocyte Esterase Trace Urine WBC (Auto) 35 Urine RBC (Auto) 1251 Urine Casts (Auto) 0 U Epithel Cells (Auto) 1.0 Urine Bacteria (Auto) 1777.0 HIV 1&2 Antibody Screen Negative HIV P24 Antigen Negative 11/15/18 11/15/18 11/15/18 10:57 13:50 14:30 WBC RBC Hgb Hct MCV MCH MCHC RDW Plt Count MPV Absolute Neuts (auto) Neutrophils % Neutrophils % (Manual) Band Neutrophils % Lymphocytes % Lymphocytes % (Manual) Monocytes % Monocytes % (Manual) Eosinophils % Eosinophils % (Manual) Basophils % Basophils % (Manual) Myelocytes % (Man) Promyelocytes % (Man) Blast Cells % (Manual) Nucleated RBC % Metamyelocytes Hypochromia Platelet Estimate Polychromasia Poikilocytosis Anisocytosis Microcytosis Macrocytosis PT with INR INR PTT (Actin FS) VBG pH POC VBG pCO2 POC VBG pO2 VBG HCO3 VBG O2 Sat (Win) VBG Base Excess Sodium Potassium Chloride Carbon Dioxide Anion Gap BUN Creatinine Est GFR (CKD-EPI)AfAm Est GFR (CKD-EPI)NonAf POC Glucometer 289 Random Glucose Hemoglobin A1c % 13.3 H Lactic Acid Calcium Phosphorus Magnesium Total Bilirubin AST ALT Alkaline Phosphatase Troponin I 0.19 H Total Protein Albumin Beta-Hydroxybutyrate Serum , Qual Urine Color Urine Appearance Urine pH Ur Specific [place] Urine Protein Urine Glucose (UA) Urine Ketones Urine Blood Urine Nitrite Urine Bilirubin Urine Urobilinogen Ur Leukocyte Esterase Urine WBC (Auto) Urine RBC (Auto) Urine Casts (Auto) U Epithel Cells (Auto) Urine Bacteria (Auto) HIV 1&2 Antibody Screen HIV P24 Antigen 11/15/18 11/15/18 11/15/18 14:31 16:29 22:31 WBC RBC Hgb Hct MCV MCH MCHC RDW Plt Count MPV Absolute Neuts (auto) Neutrophils % Neutrophils % (Manual) Band Neutrophils % Lymphocytes % Lymphocytes % (Manual) Monocytes % Monocytes % (Manual) Eosinophils % Eosinophils % (Manual) Basophils % Basophils % (Manual) Myelocytes % (Man) Promyelocytes % (Man) Blast Cells % (Manual) Nucleated RBC % Metamyelocytes Hypochromia Platelet Estimate Polychromasia Poikilocytosis Anisocytosis Microcytosis Macrocytosis PT with INR INR PTT (Actin FS) VBG pH POC VBG pCO2 POC VBG pO2 VBG HCO3 VBG O2 Sat (Win) VBG Base Excess Sodium Potassium Chloride Carbon Dioxide Anion Gap BUN Creatinine Est GFR (CKD-EPI)AfAm Est GFR (CKD-EPI)NonAf POC Glucometer 237 258 251 Random Glucose Hemoglobin A1c % Lactic Acid Calcium Phosphorus Magnesium Total Bilirubin AST ALT Alkaline Phosphatase Troponin I Total Protein Albumin Beta-Hydroxybutyrate Serum , Qual Urine Color Urine Appearance Urine pH Ur Specific [place] Urine Protein Urine Glucose (UA) Urine Ketones Urine Blood Urine Nitrite Urine Bilirubin Urine Urobilinogen Ur Leukocyte Esterase Urine WBC (Auto) Urine RBC (Auto) Urine Casts (Auto) U Epithel Cells (Auto) Urine Bacteria (Auto) HIV 1&2 Antibody Screen HIV P24 Antigen 11/15/18 11/16/18 11/16/18 23:15 05:24 05:25 WBC 4.7 RBC 3.51 L Hgb 10.5 L Hct 30.2 L MCV 86.0 MCH 29.9 MCHC 34.8 RDW 13.5 Plt Count 158 MPV 10.2 Absolute Neuts (auto) 4.0 Neutrophils % 85.1 H Neutrophils % (Manual) Band Neutrophils % Lymphocytes % 7.4 L D Lymphocytes % (Manual) Monocytes % 6.5 Monocytes % (Manual) Eosinophils % 0.0 Eosinophils % (Manual) Basophils % 1.0 Basophils % (Manual) Myelocytes % (Man) Promyelocytes % (Man) Blast Cells % (Manual) Nucleated RBC % 0 Metamyelocytes Hypochromia Platelet Estimate Polychromasia Poikilocytosis Anisocytosis Microcytosis Macrocytosis PT with INR INR PTT (Actin FS) VBG pH POC VBG pCO2 POC VBG pO2 VBG HCO3 VBG O2 Sat (Win) VBG Base Excess Sodium Potassium Chloride Carbon Dioxide Anion Gap BUN Creatinine Est GFR (CKD-EPI)AfAm Est GFR (CKD-EPI)NonAf POC Glucometer 227 Random Glucose Hemoglobin A1c % Lactic Acid Calcium Phosphorus Magnesium Total Bilirubin AST ALT Alkaline Phosphatase Troponin I 0.10 H Total Protein Albumin Beta-Hydroxybutyrate Serum , Qual Urine Color Urine Appearance Urine pH Ur Specific [place] Urine Protein Urine Glucose (UA) Urine Ketones Urine Blood Urine Nitrite Urine Bilirubin Urine Urobilinogen Ur Leukocyte Esterase Urine WBC (Auto) Urine RBC (Auto) Urine Casts (Auto) U Epithel Cells (Auto) Urine Bacteria (Auto) HIV 1&2 Antibody Screen HIV P24 Antigen 11/16/18 05:25 WBC RBC Hgb Hct MCV MCH MCHC RDW Plt Count MPV Absolute Neuts (auto) Neutrophils % Neutrophils % (Manual) Band Neutrophils % Lymphocytes % Lymphocytes % (Manual) Monocytes % Monocytes % (Manual) Eosinophils % Eosinophils % (Manual) Basophils % Basophils % (Manual) Myelocytes % (Man) Promyelocytes % (Man) Blast Cells % (Manual) Nucleated RBC % Metamyelocytes Hypochromia Platelet Estimate Polychromasia Poikilocytosis Anisocytosis Microcytosis Macrocytosis PT with INR INR PTT (Actin FS) VBG pH POC VBG pCO2 POC VBG pO2 VBG HCO3 VBG O2 Sat (Win) VBG Base Excess Sodium 140 Potassium 3.3 L Chloride 110 H Carbon Dioxide 19 L Anion Gap 11 BUN 3.7 L Creatinine 0.4 L Est GFR (CKD-EPI)AfAm 147.85 Est GFR (CKD-EPI)NonAf 127.57 POC Glucometer Random Glucose 218 H Hemoglobin A1c % Lactic Acid Calcium 7.5 L Phosphorus 1.4 L Magnesium 1.7 L Total Bilirubin AST ALT Alkaline Phosphatase Troponin I Total Protein Albumin Beta-Hydroxybutyrate Serum , Qual Urine Color Urine Appearance Urine pH Ur Specific [place] Urine Protein Urine Glucose (UA) Urine Ketones Urine Blood Urine Nitrite Urine Bilirubin Urine Urobilinogen Ur Leukocyte Esterase Urine WBC (Auto) Urine RBC (Auto) Urine Casts (Auto) U Epithel Cells (Auto) Urine Bacteria (Auto) HIV 1&2 Antibody Screen HIV P24 Antigen ASSESSMENT/PLAN: Sepsis due to a source IDDM Asthma S/P unresponsiveness Continue IVF resuscitation O2 as needed Follow cultures May need A/Pelvis imaging if condition worsens or new symptoms Strict I & O VTE prophylaxis Glycemic coverage Check orthostatics Can monitor on floors later if stable Dr Lama
[2018-11-16 16:29] LABS: ALBUMIN 2.3 g/dl (3.4-5.0); BILIRUBIN,TOTAL 0.6 mg/dL (0.2-1); BLOOD UREA NITROGEN 3.6 mg/dL (7-18); CALCIUM 7.5 mg/dL (8.5-10.1); CREATININE 0.4 mg/dL (0.55-1.3); POTASSIUM 3.7 mmol/L (3.5-5.1)
--- NOTE | 2018-11-16 17:36 | PN ---
Progress Note, Physician - Current Medication List Current Medications: Active Medications Acetaminophen (Tylenol -) 650 mg PO Q6H PRN PRN Reason: PAIN Albuterol Sulfate (Ventolin 0.083% Nebulizer Soln -) 1 amp NEB Q4H PRN PRN Reason: SHORT OF BREATH/WHEEZING Chlorhexidine Gluconate (Hibiclens For Decolonization -) 1 applic TP HS [facility] Last Admin: 11/15/18 22:15 Dose: 1 applic Heparin Sodium (Porcine) (Heparin -) 5,000 unit SQ Q8H-IV [facility] Last Admin: 11/16/18 10:45 Dose: 5,000 unit Sodium Chloride (Normal Saline -) 1,000 mls @ 100 mls/hr IV ASDIR [facility] Last Admin: 11/15/18 14:11 Dose: 100 mls/hr Ceftriaxone Sodium 1 gm/ (Dextrose) 50 mls @ 100 mls/hr IVPB DAILY [facility] Last Admin: 11/16/18 09:22 Dose: 100 mls/hr Insulin Aspart (Novolog Vial Sliding Scale -) 1 vial SQ ACHS [facility]; Protocol Last Admin: 11/16/18 11:58 Dose: 4 units Mupirocin (Bactroban Ointment (For Decolonization) -) 1 applic NS BID [facility] Stop: 11/20/18 21:59 Last Admin: 11/16/18 11:44 Dose: 1 applic - Objective Vital Signs: Vital Signs Temperature 100.7 F H 11/16/18 13:48 Pulse Rate 114 H 11/16/18 15:12 Respiratory Rate 26 H 11/16/18 13:48 Blood Pressure 96/60 11/16/18 15:12 O2 Sat by Pulse Oximetry (%) 100 11/16/18 09:00 HENT: Yes: Atraumatic Neck: Yes: Supple Cardiovascular: Yes: Regular Rate and Rhythm Respiratory: Yes: CTA Bilaterally Gastrointestinal: Yes: Normal Bowel Sounds Extremities: Yes: WNL Neurological: Yes: Alert, Oriented Labs: CBC, BMP 11/16/18 05:25 11/16/18 15:32 INR, PTT INR 1.34 (0.83-1.09) H 11/15/18 08:36 Problem List - Problems (1) Dehydration Assessment/Plan: ivf Code(s): E86.0 - DEHYDRATION (2) Hyperglycemia Assessment/Plan: iv insulin bgms Code(s): R73.9 - HYPERGLYCEMIA, UNSPECIFIED (3) UTI (urinary tract infection) Code(s): N39.0 - URINARY TRACT INFECTION, SITE NOT SPECIFIED (4) Sepsis Assessment/Plan: iv abx cxs noted Code(s): A41.9 - SEPSIS, UNSPECIFIED ORGANISM Qualifiers: Sepsis type: sepsis due to unspecified organism Sepsis acute organ dysfunction status: unspecified Qualified Code(s): A41.9 - Sepsis, unspecified organism
[2018-11-16] MEDS: ACETAMINOPHEN 325 MG TABLET (FP) PO PRN (21:04)
[2018-11-16] MEDS: SODIUM CHLORIDE 1,000 ML IV SCH (21:35)
--- NOTE | 2018-11-16 21:37 | PN ---
Progress Note (short form) - Note Progress Note: Case d/w ID, as cont to spike temp ~102, will change coverage from ceftriaxone to zosyn.
[2018-11-16] MEDS ORDERED: PIPERACILLIN/TAZOBACTAM 4.5 GM VIAL IVPB ONE (21:44)
[2018-11-16] MEDS ORDERED: DEXTROSE 5%-WATER 100 ML IVPB ONE (21:44)
[2018-11-16] MEDS ORDERED: PIPERACILLIN/TAZOB 4.5 GM 4.5 GM in DEXTROSE 5%-WATER 100 ML IVPB SCH (21:45)
[2018-11-16] MEDS ORDERED: INSULIN (LEVEMIR) 100 UNITS/ML UNITS SQ SCH (22:00)
[2018-11-16] MEDS: CHLORHEXIDINE GLUCONATE 4% CLEANSER FOR DECOLONIZATION TP SCH (22:54)
[2018-11-16] MEDS: PIPERACILLIN/TAZOB 4.5 GM 4.5 GM in DEXTROSE 5%-WATER 100 ML IVPB SCH (22:54)
[2018-11-17] MEDS ORDERED: PIPERACILLIN/TAZOBACTAM 4.5 GM VIAL IVPB ONE ×3 (01:16→16:17)
[2018-11-17] MEDS ORDERED: DEXTROSE 5%-WATER 100 ML IVPB ONE ×3 (01:17→16:17)
[2018-11-17] MEDS: PIPERACILLIN/TAZOB 4.5 GM 4.5 GM in DEXTROSE 5%-WATER 100 ML IVPB SCH ×3 (02:12→17:30)
[2018-11-17] MEDS: SODIUM CHLORIDE 1,000 ML IV SCH ×2 (02:12→06:56)
[2018-11-17] MEDS: HEPARIN NA (PORCINE) 5,000 UNITS/ML 1ML VIAL SQ SCH ×4 (02:12→22:13)
[2018-11-17] MEDS: ACETAMINOPHEN 325 MG TABLET (FP) PO PRN ×3 (03:07→16:19)
[2018-11-17] MEDS: INSULIN SLIDING SCALE (NOVOLOG) 1 VIAL SQ SCH ×4 (06:35→22:14)
[2018-11-17 07:05] LABS: HEMATOCRIT 27.4 % (32.4-45.2); HEMOGLOBIN 9.5 GM/dL (10.7-15.3); LYMPH % 12.1 % (8-40); MCH 29.5 pg (25.7-33.7); MCHC 34.8 g/dl (32.0-36.0); MEAN CELL VOLUME 84.9 fl (80-96); MEAN PLT VOLUME 10.3 fl (7.5-11.1); NEUT % 76.9 % (42.8-82.8); PLATELET COUNT 154 K/MM3 (134-434); RBC 3.23 M/mm3 (3.60-5.2); RDW 13.4 % (11.6-15.6); WHITE BLOOD COUNT 4.6 K/mm3 (4.0-10.0)
[2018-11-17 07:37] LABS: ALBUMIN 2.4 g/dl (3.4-5.0); BILIRUBIN,TOTAL 0.8 mg/dL (0.2-1); CREATININE 0.3 mg/dL (0.55-1.3); MAGNESIUM 1.8 mg/dL (1.8-2.4); PHOSPHOROUS 1.5 mg/dL (2.5-4.9); POTASSIUM 3.1 mmol/L (3.5-5.1); TOT PROT 5.1 g/dl (6.4-8.2)
[2018-11-17 07:41] LABS: BLOOD UREA NITROGEN 2.5 mg/dL (7-18)
[2018-11-17] MEDS ORDERED: POTASSIUM CHLORIDE TABS 20 MEQ TABLET.ER (FP) PO ONE (08:31)
[2018-11-17] MEDS ORDERED: POTASSIUM PHOSPHATE 20 MM in SODIUM CHLORIDE 250 ML IVPB ONE (08:41)
--- NOTE | 2018-11-17 09:16 | PN ---
Progress Note (short form) - Note Progress Note: Feels better Denies any complaints Vital Signs Period Temp Pulse Resp BP Sys/Gastelum Pulse Ox Last 24 Hr 98.6 F-102.3 F 101-121 19-36 95-112/39-80 95-97 PE: AOx3 Neck: Supple, NO JVD HEENT: EOMI Lungs: CTA CVS: S1S2 Abd: Benign Ext: No edema Neuro: No focal deficit CMP Sodium 141 mmol/L (136-145) 11/17/18 05:24 Potassium 3.1 mmol/L (3.5-5.1) L 11/17/18 05:24 Chloride 110 mmol/L (98-107) H 11/17/18 05:24 Carbon Dioxide 22 mmol/L (21-32) 11/17/18 05:24 Anion Gap 9 MMOL/L (8-16) 11/17/18 05:24 BUN 2.5 mg/dL (7-18) L* 11/17/18 05:24 Creatinine 0.3 mg/dL (0.55-1.3) L 11/17/18 05:24 Est GFR (CKD-EPI)AfAm 162.53 11/17/18 05:24 Est GFR (CKD-EPI)NonAf 140.23 11/17/18 05:24 POC Glucometer 157 UNITS (80-120) 11/17/18 05:25 Random Glucose 178 mg/dL (74-106) H 11/17/18 05:24 Hemoglobin A1c % 13.3 % (4.2-6.3) H 11/15/18 13:50 Lactic Acid 1.6 mmol/L (0.4-2.0) 11/15/18 09:02 Calcium 8.0 mg/dL (8.5-10.1) L 11/17/18 05:24 Phosphorus 1.5 mg/dL (2.5-4.9) L 11/17/18 05:24 Magnesium 1.8 mg/dL (1.8-2.4) 11/17/18 05:24 Total Bilirubin 0.8 mg/dL (0.2-1) 11/17/18 05:24 AST 73 U/L (15-37) H 11/17/18 05:24 ALT 53 U/L (13-61) 11/17/18 05:24 Alkaline Phosphatase 150 U/L (45-117) H 11/17/18 05:24 Troponin I < 0.02 ng/ml (0.00-0.05) 11/16/18 19:30 Total Protein 5.1 g/dl (6.4-8.2) L 11/17/18 05:24 Albumin 2.4 g/dl (3.4-5.0) L 11/17/18 05:24 Beta-Hydroxybutyrate 26.1 mg/dL (0.2-2.8) H 11/15/18 08:36 Serum , Qual Negative 11/15/18 08:36 Current Medications Generic Name Dose Route Start Last Admin Trade Name Freq PRN Reason Stop Dose Admin Acetaminophen 650 mg 11/16/18 11:26 11/17/18 03:07 Tylenol - PO 650 mg Q6H PRN Administration PAIN Albuterol Sulfate 1 amp 11/15/18 14:41 Ventolin 0.083% Nebulizer Soln - NEB Q4H PRN SHORT OF BREATH/WHEEZING Chlorhexidine Gluconate 1 applic 11/15/18 22:00 11/16/18 22:54 Hibiclens For Decolonization - TP 1 applic HS [facility] Administration Heparin Sodium (Porcine) 5,000 unit 11/15/18 14:00 11/17/18 02:12 Heparin - SQ 5,000 unit Q8H-IV [facility] Administration Piperacillin Sod/Tazobactam 100 mls @ 200 mls/hr 11/16/18 21:45 Sod 4.5 gm/ Dextrose IVPB Q8H-IV [facility] Protocol Piperacillin Sod/Tazobactam 100 mls @ 200 mls/hr 11/16/18 21:45 11/17/18 02: 12 Sod 4.5 gm/ Dextrose IVPB 11/17/18 21:44 200 mls/hr Q8H-IV [facility] Administration Protocol Sodium Chloride 1,000 mls @ 75 mls/hr 11/16/18 23:16 11/17/18 06:56 Normal Saline - IV 75 mls/hr ASDIR [facility]ILLIP Administration Potassium Phosphate 20 mm/ 256.6667 mls @ 62.5 mls/hr 11/17/18 08:41 Sodium Chloride IVPB 11/17/18 12:47 ONCE ONE Insulin Aspart 1 vial 11/15/18 16:30 11/17/18 06:35 Novolog Vial Sliding Scale - SQ 2 units ACHS [facility] Administration Protocol Insulin Detemir 8 units 11/16/18 22:00 11/16/18 22:55 Levemir Vial SQ 8 units HS [facility] Administration Mupirocin 1 applic 11/15/18 22:00 11/16/18 22:54 Bactroban Ointment (For Decolonization) - NS 11/20/18 21:59 1 applic BID [facility]IP Administration Potassium Chloride 40 meq 11/17/18 08:31 K-Dur - PO 11/17/18 08:32 ONCE ONE A/P Sepsis due to a source DM Uncontrolled: A1c 13.3 Asthma S/P unresponsiveness IV hydration as necessary O2 as needed BGM QACHS Levemir 8 units Daily Novolog SS coverage Will F/u
[2018-11-17] MEDS: MUPIROCIN 2% TOPICAL OINTMENT FOR DECOLONIZATION NS SCH (10:01)
[2018-11-17 10:23] LABS: ANISOCYTOSIS 2+; MACROCYTOSIS 0; PLATELET ESTIMATE DECREASED; TEAR DROP CELLS 1+
--- NOTE | 2018-11-17 12:15 | PN ---
Teaching Attending Note Name of Resident: Luis Carlos Malave ATTENDING PHYSICIAN STATEMENT I saw and evaluated the patient. I reviewed the resident's note and discussed the case with the resident. I agree with the resident's findings and plan as documented. SUBJECTIVE: Patient seen and examined in the ICU. Awake and alert. Abdominal discomfort continues to improve. No CP or SOB. OBJECTIVE: Intake & Output 11/14/18 11/15/18 11/16/18 11/17/18 23:59 23:59 23:59 23:59 Intake Total 2410 3150 1840 Output Total 2100 6350 700 Balance 310 -3200 1140 Weight 128 lb Last Vital Signs Temp Pulse Resp BP Pulse Ox 98.6 F 110 H 22 H 115/68 97 11/17/18 10:00 11/17/18 10:00 11/17/18 08:00 11/17/18 10:00 11/17/18 08:24 Active Medications Acetaminophen (Tylenol -) 650 mg PO Q6H PRN PRN Reason: PAIN Last Admin: 11/17/18 09:58 Dose: 650 mg Albuterol Sulfate (Ventolin 0.083% Nebulizer Soln -) 1 amp NEB Q4H PRN PRN Reason: SHORT OF BREATH/WHEEZING Chlorhexidine Gluconate (Hibiclens For Decolonization -) 1 applic TP HS PHILLIP Last Admin: 11/16/18 22:54 Dose: 1 applic Heparin Sodium (Porcine) (Heparin -) 5,000 unit SQ Q8H-IV PHILLIP Last Admin: 11/17/18 09:55 Dose: 5,000 unit Piperacillin Sod/Tazobactam (Sod 4.5 gm/ Dextrose) 100 mls @ 200 mls/hr IVPB Q8H-IV PHILLIP; Protocol Piperacillin Sod/Tazobactam (Sod 4.5 gm/ Dextrose) 100 mls @ 200 mls/hr IVPB Q8H-IV PHILLIP; Protocol Stop: 11/17/18 21:44 Last Admin: 11/17/18 09:55 Dose: 200 mls/hr Sodium Chloride (Normal Saline -) 1,000 mls @ 75 mls/hr IV ASDIR PHILLIP Last Admin: 11/17/18 06:56 Dose: 75 mls/hr Potassium Phosphate 20 mm/ (Sodium Chloride) 256.6667 mls @ 51.333 mls/hr IVPB ONCE ONE Stop: 10/11/19 13:40 Insulin Aspart (Novolog Vial Sliding Scale -) 1 vial SQ ACHS PHILLIP; Protocol Last Admin: 11/17/18 06:35 Dose: 2 units Insulin Detemir (Levemir Vial) 8 units SQ HS PHILLIP Last Admin: 11/16/18 22:55 Dose: 8 units Mupirocin (Bactroban Ointment (For Decolonization) -) 1 applic NS BID PHILLIP Stop: 11/20/18 21:59 Last Admin: 11/17/18 10:01 Dose: 1 applic GENERAL: The patient is awake, alert, and oriented, in no acute distress. HEAD: Normal with no signs of trauma. EYES: PERRL, extraocular movements intact, sclera anicteric, conjunctiva clear. No ptosis. ENT: Ears normal, nares patent, oropharynx clear without exudates, moist mucous membranes. NECK: Trachea midline, full range of motion, supple. LUNGS: Breath sounds equal, clear to auscultation bilaterally, no wheezes, no crackles HEART: Regular rate and rhythm, S1, S2 without murmur, rub or gallop. ABDOMEN: Soft, nontender, nondistended, normoactive bowel sounds, no guarding, no rebound, no hepatosplenomegaly, no masses. EXTREMITIES: 2+ pulses, warm, well-perfused, no edema. NEUROLOGICAL: non-focal PSYCH: Normal mood, normal affect. SKIN: Warm, dry, normal turgor, no rashes or lesions noted Laboratory Results - last 24 hr 11/16/18 11/16/18 11/16/18 15:32 18:11 19:30 WBC RBC Hgb Hct MCV MCH MCHC RDW Plt Count MPV Absolute Neuts (auto) Neutrophils % Neutrophils % (Manual) Band Neutrophils % Lymphocytes % Lymphocytes % (Manual) Monocytes % Monocytes % (Manual) Eosinophils % Eosinophils % (Manual) Basophils % Basophils % (Manual) Myelocytes % (Man) Promyelocytes % (Man) Blast Cells % (Manual) Nucleated RBC % Metamyelocytes Hypochromia Platelet Estimate Polychromasia Poikilocytosis Anisocytosis Microcytosis Macrocytosis Spherocytes Tear Drop Cells Dereck Cells Sodium 139 Potassium 3.7 Chloride 111 H Carbon Dioxide 17 L Anion Gap 10 BUN 3.6 L Creatinine 0.4 L Est GFR (CKD-EPI)AfAm 147.85 Est GFR (CKD-EPI)NonAf 127.57 POC Glucometer 232 Random Glucose 277 H Calcium 7.5 L Phosphorus Magnesium Total Bilirubin 0.6 AST 82 H ALT 49 Alkaline Phosphatase 135 H Troponin I < 0.02 Total Protein 5.0 L Albumin 2.3 L 11/16/18 11/17/18 11/17/18 22:49 05:24 05:24 WBC 4.6 RBC 3.23 L Hgb 9.5 L Hct 27.4 L MCV 84.9 MCH 29.5 MCHC 34.8 RDW 13.4 Plt Count 154 MPV 10.3 Absolute Neuts (auto) 3.5 Neutrophils % 76.9 Neutrophils % (Manual) 56.2 Band Neutrophils % 22.9 Lymphocytes % 12.1 D Lymphocytes % (Manual) 14.3 D Monocytes % 9.0 Monocytes % (Manual) 2 L Eosinophils % 1.0 D Eosinophils % (Manual) 0.0 Basophils % 1.0 Basophils % (Manual) 1.9 Myelocytes % (Man) 0 Promyelocytes % (Man) 0 Blast Cells % (Manual) 0 Nucleated RBC % 0 Metamyelocytes 1 D Hypochromia 0 Platelet Estimate Decreased Polychromasia 1+ Poikilocytosis 1+ Anisocytosis 2+ Microcytosis 1+ Macrocytosis 0 Spherocytes 1+ Tear Drop Cells 1+ [place] Cells 1+ Sodium 141 Potassium 3.1 L Chloride 110 H Carbon Dioxide 22 Anion Gap 9 BUN 2.5 L* Creatinine 0.3 L Est GFR (CKD-EPI)AfAm 162.53 Est GFR (CKD-EPI)NonAf 140.23 POC Glucometer 208 Random Glucose 178 H Calcium 8.0 L Phosphorus 1.5 L Magnesium 1.8 Total Bilirubin 0.8 AST 73 H ALT 53 Alkaline Phosphatase 150 H Troponin I Total Protein 5.1 L Albumin 2.4 L 11/17/18 05:25 WBC RBC Hgb Hct MCV MCH MCHC RDW Plt Count MPV Absolute Neuts (auto) Neutrophils % Neutrophils % (Manual) Band Neutrophils % Lymphocytes % Lymphocytes % (Manual) Monocytes % Monocytes % (Manual) Eosinophils % Eosinophils % (Manual) Basophils % Basophils % (Manual) Myelocytes % (Man) Promyelocytes % (Man) Blast Cells % (Manual) Nucleated RBC % Metamyelocytes Hypochromia Platelet Estimate Polychromasia Poikilocytosis Anisocytosis Microcytosis Macrocytosis Spherocytes Tear Drop Cells Dereck Cells Sodium Potassium Chloride Carbon Dioxide Anion Gap BUN Creatinine Est GFR (CKD-EPI)AfAm Est GFR (CKD-EPI)NonAf POC Glucometer 157 Random Glucose Calcium Phosphorus Magnesium Total Bilirubin AST ALT Alkaline Phosphatase Troponin I Total Protein Albumin ASSESSMENT/PLAN: Sepsis due to a source IDDM Asthma S/P unresponsiveness Continue IVF O2 as needed Follow final cultures Follow I & O VTE prophylaxis Glycemic coverage Can monitor on floors Dr Lama
--- NOTE | 2018-11-17 12:40 | PN ---
Physical Exam: SUBJECTIVE: Patient seen and examined at bedside in the ICU. Resting comfortably. Awake and alert. Reports improved abdominal pain. Denies chest pain /shortness of breath. OBJECTIVE: Vital Signs Period Temp Pulse Resp BP Sys/Gastelum Pulse Ox Last 24 Hr 98.6 F-102.3 F 101-121 22-36 96-115/39-80 95-97 GENERAL: The patient is awake, alert, and fully oriented, in no acute distress. HEAD: Normal with no signs of trauma. EYES: PERRL, extraocular movements intact, sclera anicteric, conjunctiva clear. No ptosis. ENT: Ears normal, nares patent, oropharynx clear without exudates, moist mucous membranes. NECK: Trachea midline, full range of motion, supple. LUNGS: Breath sounds equal, clear to auscultation bilaterally, no wheezes, no crackles, no accessory muscle use. HEART: Regular rate and rhythm, S1, S2 without murmur, rub or gallop. ABDOMEN: Soft, nontender, nondistended, no guarding, no rebound, no hepatosplenomegaly, no masses. EXTREMITIES: 2+ pulses, warm, well-perfused, no edema. NEUROLOGICAL: Cranial nerves II through XII grossly intact. Normal speech, gait not observed. PSYCH: Normal mood, normal affect. SKIN: Warm, dry, normal turgor, no rashes or lesions noted Laboratory Results - last 24 hr 11/16/18 11/16/18 11/16/18 15:32 18:11 19:30 WBC RBC Hgb Hct MCV MCH MCHC RDW Plt Count MPV Absolute Neuts (auto) Neutrophils % Neutrophils % (Manual) Band Neutrophils % Lymphocytes % Lymphocytes % (Manual) Monocytes % Monocytes % (Manual) Eosinophils % Eosinophils % (Manual) Basophils % Basophils % (Manual) Myelocytes % (Man) Promyelocytes % (Man) Blast Cells % (Manual) Nucleated RBC % Metamyelocytes Hypochromia Platelet Estimate Polychromasia Poikilocytosis Anisocytosis Microcytosis Macrocytosis Spherocytes Tear Drop Cells [place] Cells Sodium 139 Potassium 3.7 Chloride 111 H Carbon Dioxide 17 L Anion Gap 10 BUN 3.6 L Creatinine 0.4 L Est GFR (CKD-EPI)AfAm 147.85 Est GFR (CKD-EPI)NonAf 127.57 POC Glucometer 232 Random Glucose 277 H Calcium 7.5 L Phosphorus Magnesium Total Bilirubin 0.6 AST 82 H ALT 49 Alkaline Phosphatase 135 H Troponin I < 0.02 Total Protein 5.0 L Albumin 2.3 L 11/16/18 11/17/18 11/17/18 22:49 05:24 05:24 WBC 4.6 RBC 3.23 L Hgb 9.5 L Hct 27.4 L MCV 84.9 MCH 29.5 MCHC 34.8 RDW 13.4 Plt Count 154 MPV 10.3 Absolute Neuts (auto) 3.5 Neutrophils % 76.9 Neutrophils % (Manual) 56.2 Band Neutrophils % 22.9 Lymphocytes % 12.1 D Lymphocytes % (Manual) 14.3 D Monocytes % 9.0 Monocytes % (Manual) 2 L Eosinophils % 1.0 D Eosinophils % (Manual) 0.0 Basophils % 1.0 Basophils % (Manual) 1.9 Myelocytes % (Man) 0 Promyelocytes % (Man) 0 Blast Cells % (Manual) 0 Nucleated RBC % 0 Metamyelocytes 1 D Hypochromia 0 Platelet Estimate Decreased Polychromasia 1+ Poikilocytosis 1+ Anisocytosis 2+ Microcytosis 1+ Macrocytosis 0 Spherocytes 1+ Tear Drop Cells 1+ Dereck Cells 1+ Sodium 141 Potassium 3.1 L Chloride 110 H Carbon Dioxide 22 Anion Gap 9 BUN 2.5 L* Creatinine 0.3 L Est GFR (CKD-EPI)AfAm 162.53 Est GFR (CKD-EPI)NonAf 140.23 POC Glucometer 208 Random Glucose 178 H Calcium 8.0 L Phosphorus 1.5 L Magnesium 1.8 Total Bilirubin 0.8 AST 73 H ALT 53 Alkaline Phosphatase 150 H Troponin I Total Protein 5.1 L Albumin 2.4 L 11/17/18 11/17/18 05:25 12:21 WBC RBC Hgb Hct MCV MCH MCHC RDW Plt Count MPV Absolute Neuts (auto) Neutrophils % Neutrophils % (Manual) Band Neutrophils % Lymphocytes % Lymphocytes % (Manual) Monocytes % Monocytes % (Manual) Eosinophils % Eosinophils % (Manual) Basophils % Basophils % (Manual) Myelocytes % (Man) Promyelocytes % (Man) Blast Cells % (Manual) Nucleated RBC % Metamyelocytes Hypochromia Platelet Estimate Polychromasia Poikilocytosis Anisocytosis Microcytosis Macrocytosis Spherocytes Tear Drop Cells [place] Cells Sodium Potassium Chloride Carbon Dioxide Anion Gap BUN Creatinine Est GFR (CKD-EPI)AfAm Est GFR (CKD-EPI)NonAf POC Glucometer 157 168 Random Glucose Calcium Phosphorus Magnesium Total Bilirubin AST ALT Alkaline Phosphatase Troponin I Total Protein Albumin Active Medications Generic Name Dose Route Start Last Admin Trade Name Freq PRN Reason Stop Dose Admin Acetaminophen 650 mg 11/16/18 11:26 11/17/18 09:58 Tylenol - PO 650 mg Q6H PRN Administration PAIN Albuterol Sulfate 1 amp 11/15/18 14:41 Ventolin 0.083% Nebulizer Soln - NEB Q4H PRN SHORT OF BREATH/WHEEZING Chlorhexidine Gluconate 1 applic 11/15/18 22:00 11/16/18 22:54 Hibiclens For Decolonization - TP 1 applic HS PHILLIP Administration Heparin Sodium (Porcine) 5,000 unit 11/15/18 14:00 11/17/18 09:55 Heparin - SQ 5,000 unit Q8H-IV [facility]IP Administration Piperacillin Sod/Tazobactam 100 mls @ 200 mls/hr 11/16/18 21:45 Sod 4.5 gm/ Dextrose IVPB Q8H-IV PHILLIP Protocol Piperacillin Sod/Tazobactam 100 mls @ 200 mls/hr 11/16/18 21:45 11/17/18 09: 55 Sod 4.5 gm/ Dextrose IVPB 11/17/18 21:44 200 mls/hr Q8H-IV [facility]ILLIP Administration Protocol Sodium Chloride 1,000 mls @ 75 mls/hr 11/16/18 23:16 11/17/18 06:56 Normal Saline - IV 75 mls/hr ASDIR PHILLIP Administration Potassium Phosphate 20 mm/ 256.6667 mls @ 51.333 mls/hr 11/17/18 08:41 12:29 Sodium Chloride IVPB 11/17/18 13:40 51.333 mls/hr ONCE ONE Administration Insulin Aspart 1 vial 11/15/18 16:30 11/17/18 12:32 Novolog Vial Sliding Scale - SQ 2 units ACHS PHILLIP Administration Protocol Insulin Detemir 8 units 11/16/18 22:00 11/16/18 22:55 Levemir Vial SQ 8 units HS PHILLIP Administration Mupirocin 1 applic 11/15/18 22:00 11/17/18 10:01 Bactroban Ointment (For Decolonization) - NS 11/20/18 21:59 1 applic BID PHILLIP Administration ASSESSMENT/PLAN: 43 y/o F with PMH IDDM and asthma (currently not on tx), who presented after being found unresponsive today. In [facility] ED, she was found to have a temp of 103.6F, labile BP ~80/50, tachycardia to 120's, and received 3L boluses without adequate improvement in BP. ICU consulted for persistent hypotension, despite 3L NS boluses and cont'd lethargy. #Neuro -AAO x 3 #ID R/o septic shock 2/2 UTI -with dysuria. initially febrile to 103.6F, mildly hypotensive -f/u CVP; bolus as needed -c/w rocephin IVPB qd. received 2g in ED d/t concern for meningitis, however pt w/ improved status less likely -f/u final cultures -c/w IVF; NS 100 cc/hr -has possible demand ischemia -consider abd/pelv imaging if worsening #Cardio: Demand ischemia possible 2/2 sepsis -initial trop 0.04. c/t trend until peak -orthostatic BP negative #Pulm R/o PE -CTA (-) for PE -O2 supplementation PRN Asthma -currently not in exacerbation -will start ventolin PRN #Endocrine IDDM -f/u a1c -c/w ISS, BGM ACHS -hold home hypoglycemic agents -novolog SS #F/E/N IV NS 100 cc/hr continue to follow lytes Diabetic diet strict I/O #Code status Full code #PPX DVT: hep 5k SQ tid Dispo: transfer to floor Luis Carlos Malave MD PGY-1, Critical Care/ICU [phone] Visit type - Emergency Visit Emergency Visit: No - New Patient This patient is new to me today: No - Critical Care Critical Care patient: Yes Total Critical Care Time (in minutes): 35 Critical Care Statement: The care of this patient involved high complexity decision making to prevent further life threatening deterioration of the patient 's condition and/or to evaluate & treat vital organ system(s) failure or risk of failure. ATTENDING PHYSICIAN STATEMENT I saw and evaluated the patient. I reviewed the resident's note and discussed the case with the resident. I agree with the resident's findings and plan as documented. SUBJECTIVE: OBJECTIVE: ASSESSMENT AND PLAN:
[2018-11-17] MEDS ORDERED: FLU VACCINE QUAD 60 MCG/0.5 ML (MDV 19-20) IM ONE (12:54)
--- NOTE | 2018-11-17 13:31 | CON.ID ---
Consult Consult Specialty:: infectious diseases Referred by:: Reason for Consultation:: sepsis,bacteremia - History of Present Illness Chief Complaint: sepsis History of Present Illness: this patient in the icu with history as follows 43 y/o F with PMH IDDM and asthma , who presented after being found unresponsive It seems patient had not taken insulin During this past week, she felt unwell, and more acutely lethargic with chills patient was admitted with sepsis and hypotensive and received fluids patient was admitted and started on ceftriaxone patient then became septic and was found to ahve positive blood cx and after discussing the case was advised to switch to zosyn currently the patient looks much better - History Source History Provided By: Patient, Medical Record Limitations to Obtaining History: Language Barrier - Past Medical History ...: No Endocrine: Yes: Diabetes Mellitus - Alcohol/Substance Use Hx Alcohol Use: No - Smoking History Smoking history: Never smoked Have you smoked in the past 12 months: No Home Medications - Allergies Allergies/Adverse Reactions: Allergies Allergy/AdvReac Type Severity Reaction Status Date / Time ibuprofen Allergy Severe Difficulty Verified 11/15/18 08:12 Breathing - Home Medications Home Medications: Ambulatory Orders Glimepiride 2 mg PO DAILY 10/01/15 metFORMIN HCL [Metformin HCl] 1,000 mg PO BID 10/01/15 Review of Systems - Review of Systems Constitutional: reports: Chills, Fever Eyes: reports: No Symptoms Neck: reports: No Symptoms Cardiovascular: reports: No Symptoms Gastrointestinal: reports: No Symptoms Musculoskeletal: reports: No Symptoms Neurological: reports: Change in LOC, Other (lethargy) Endocrine: reports: Other Hematology/Lymphatic: reports: No Symptoms Psychiatric: reports: No Symptoms Physical Exam Vital Signs: Vital Signs Temperature 98.6 F 11/17/18 10:00 Pulse Rate 103 H 11/17/18 12:00 Respiratory Rate 18 11/17/18 12:00 Blood Pressure 98/85 11/17/18 12:00 O2 Sat by Pulse Oximetry (%) 97 11/17/18 08:24 Constitutional: Yes: Well Nourished, No Distress, Calm Eyes: Yes: Conjunctiva Clear HENT: Yes: Atraumatic, Normocephalic Neck: Yes: Supple, Trachea Midline Cardiovascular: Yes: Regular Rate and Rhythm, Tachycardia Respiratory: Yes: Regular, CTA Bilaterally Gastrointestinal: Yes: Normal Bowel Sounds, Soft Musculoskeletal: Yes: WNL Extremities: Yes: WNL Integumentary: Yes: WNL Neurological: Yes: Alert, Oriented Psychiatric: Yes: Alert, Oriented Labs: CBC, BMP 11/17/18 05:24 11/17/18 05:24 Imaging - Results Chest X-ray: Report Reviewed, Image Reviewed Cat Scan: Report Reviewed, Image Reviewed Assessment/Plan Problem List - Problems (1) Dehydration Code(s): E86.0 - DEHYDRATION (2) Hyperglycemia Code(s): R73.9 - HYPERGLYCEMIA, UNSPECIFIED (3) UTI (urinary tract infection) Code(s): N39.0 - URINARY TRACT INFECTION, SITE NOT SPECIFIED (4) Sepsis Code(s): A41.9 - SEPSIS, UNSPECIFIED ORGANISM Qualifiers: Sepsis type: sepsis due to unspecified organism Sepsis acute organ dysfunction status: unspecified Qualified Code(s): A41.9 - Sepsis, unspecified organism 5 gm negative bacteremia plan continue as per icu continue abx patient improving repeat blood cx await for identification and sensitivities rest as per the team cc 40 min
[2018-11-17] MEDS ORDERED: INSULIN (NOVOLOG) ASPART 100 UNITS/ML 10ML VIAL ONE ×2 (14:51→21:32)
[2018-11-17] MEDS: MULTIVITAMINS (DAILY MVI) TABLET (FP) PO SCH (16:19)
--- NOTE | 2018-11-17 17:21 | PN ---
Progress Note, Physician - Current Medication List Current Medications: Active Medications Acetaminophen (Tylenol -) 650 mg PO Q6H PRN PRN Reason: PAIN Last Admin: 11/17/18 16:19 Dose: 650 mg Albuterol Sulfate (Ventolin 0.083% Nebulizer Soln -) 1 amp NEB Q4H PRN PRN Reason: SHORT OF BREATH/WHEEZING Chlorhexidine Gluconate (Hibiclens For Decolonization -) 1 applic TP HS PHILLIP Last Admin: 11/16/18 22:54 Dose: 1 applic Heparin Sodium (Porcine) (Heparin -) 5,000 unit SQ Q8H-IV PHILLIP Last Admin: 11/17/18 09:55 Dose: 5,000 unit Piperacillin Sod/Tazobactam (Sod 4.5 gm/ Dextrose) 100 mls @ 200 mls/hr IVPB Q8H-IV PHILLIP; Protocol Piperacillin Sod/Tazobactam (Sod 4.5 gm/ Dextrose) 100 mls @ 200 mls/hr IVPB Q8H-IV PHILLIP; Protocol Stop: 11/17/18 21:44 Last Admin: 11/17/18 09:55 Dose: 200 mls/hr Sodium Chloride (Normal Saline -) 1,000 mls @ 75 mls/hr IV ASDIR PHILLIP Last Admin: 11/17/18 06:56 Dose: 75 mls/hr Insulin Aspart (Novolog Vial Sliding Scale -) 1 vial SQ [facility]; Protocol Last Admin: 11/17/18 12:32 Dose: 2 units Insulin Detemir (Levemir Vial) 8 units SQ HS [facility] Last Admin: 11/16/18 22:55 Dose: 8 units Multivitamins/Minerals/Vitamin C (Tab-A-Vit -) 1 tab PO DAILY PHILLIP Last Admin: 11/17/18 16:19 Dose: 1 tab Mupirocin (Bactroban Ointment (For Decolonization) -) 1 applic NS BID PHILLIP Stop: 11/20/18 21:59 Last Admin: 11/17/18 10:01 Dose: 1 applic - Objective Vital Signs: Vital Signs Temperature 99.5 F 11/17/18 16:00 Pulse Rate 109 H 11/17/18 16:00 Respiratory Rate 20 11/17/18 16:00 Blood Pressure 123/76 11/17/18 16:00 O2 Sat by Pulse Oximetry (%) 97 11/17/18 08:24 Constitutional: Yes: No Distress HENT: Yes: Atraumatic Neck: Yes: Supple Cardiovascular: Yes: Regular Rate and Rhythm Respiratory: Yes: CTA Bilaterally Gastrointestinal: Yes: Normal Bowel Sounds Extremities: Yes: WNL Edema: No Peripheral Pulses WNL: Yes Neurological: Yes: Alert, Oriented Labs: CBC, BMP 11/17/18 05:24 11/17/18 05:24 INR, PTT INR 1.34 (0.83-1.09) H 11/15/18 08:36 Problem List - Problems (1) Dehydration Assessment/Plan: ivf Code(s): E86.0 - DEHYDRATION (2) Hyperglycemia Assessment/Plan: on insulin bgms Code(s): R73.9 - HYPERGLYCEMIA, UNSPECIFIED (3) UTI (urinary tract infection) Assessment/Plan: iv abx cxs noted Code(s): N39.0 - URINARY TRACT INFECTION, SITE NOT SPECIFIED (4) Sepsis Assessment/Plan: iv abx cxs noted Code(s): A41.9 - SEPSIS, UNSPECIFIED ORGANISM Qualifiers: Sepsis type: sepsis due to unspecified organism Sepsis acute organ dysfunction status: unspecified Qualified Code(s): A41.9 - Sepsis, unspecified organism
[2018-11-17] MEDS ORDERED: ALBUTEROL SO4 0.083% IH SOL 2.5 MG/3 ML VIAL.NEB. NEB PRN (20:05)
[2018-11-17] MEDS: INSULIN (LEVEMIR) 100 UNITS/ML UNITS SQ SCH (22:13)
[2018-11-18] MEDS ORDERED: DEXTROSE 5%-WATER - 50 ML IVPB ONE ×3 (01:19→16:48)
[2018-11-18] MEDS ORDERED: PIPERACILLIN/TAZOBACTAM 3.375 GM VIAL IVPB ONE ×3 (01:19→16:48)
[2018-11-18] MEDS: ACETAMINOPHEN 325 MG TABLET (FP) PO PRN ×2 (01:35→11:39)
[2018-11-18] MEDS: PIPERACILLIN/TAZOB 3.375 GM 3.375 GM in DEXTROSE 5%-WATER - 50 ML IVPB SCH ×3 (01:38→17:16)
[2018-11-18] MEDS ORDERED: PIPERACILLIN/TAZOB 4.5 GM 4.5 GM in DEXTROSE 5%-WATER 100 ML IVPB SCH (02:00)
[2018-11-18] MEDS: HEPARIN NA (PORCINE) 5,000 UNITS/ML 1ML VIAL SQ SCH ×3 (05:59→21:42)
[2018-11-18] MEDS: INSULIN SLIDING SCALE (NOVOLOG) 1 VIAL SQ SCH ×4 (06:26→21:43)
[2018-11-18] MEDS: MULTIVITAMINS (DAILY MVI) TABLET (FP) PO SCH (09:09)
[2018-11-18] MEDS ORDERED: INSULIN (NOVOLOG) ASPART 100 UNITS/ML 10ML VIAL ONE ×3 (12:13→21:03)
--- NOTE | 2018-11-18 12:45 | PN ---
Progress Note, Physician - Current Medication List Current Medications: Active Medications Acetaminophen (Tylenol -) 650 mg PO Q6H PRN PRN Reason: PAIN Last Admin: 11/18/18 11:39 Dose: 650 mg Albuterol Sulfate (Ventolin 0.083% Nebulizer Soln -) 1 amp NEB Q4H PRN PRN Reason: SHORT OF BREATH/WHEEZING Heparin Sodium (Porcine) (Heparin -) 5,000 unit SQ TID PHILLIP Last Admin: 11/18/18 05:59 Dose: 5,000 unit Piperacillin Sod/Tazobactam (Sod 3.375 gm/ Dextrose) 50 mls @ 100 mls/hr IVPB Q8H-IV PHILLIP; Protocol Last Admin: 11/18/18 09:08 Dose: 100 mls/hr Insulin Aspart (Novolog Vial Sliding Scale -) 1 vial SQ ACHS PHILLIP; Protocol Last Admin: 11/18/18 12:05 Dose: 4 units Insulin Detemir (Levemir Vial) 8 units SQ HS PHILLIP Last Admin: 11/17/18 22:13 Dose: 8 units Multivitamins/Minerals/Vitamin C (Tab-A-Vit -) 1 tab PO DAILY PHILLIP Last Admin: 11/18/18 09:09 Dose: 1 tab - Objective Vital Signs: Vital Signs Temperature 98.9 F 11/18/18 06:00 Pulse Rate 96 H 11/18/18 06:00 Respiratory Rate 18 11/18/18 09:00 Blood Pressure 109/66 11/18/18 06:00 O2 Sat by Pulse Oximetry (%) 98 11/18/18 09:00 Constitutional: Yes: No Distress HENT: Yes: Atraumatic Neck: Yes: Supple Cardiovascular: Yes: Regular Rate and Rhythm Respiratory: Yes: CTA Bilaterally Gastrointestinal: Yes: Normal Bowel Sounds Extremities: Yes: WNL Neurological: Yes: Alert, Oriented Labs: CBC, BMP 11/17/18 05:24 11/17/18 05:24 INR, PTT INR 1.34 (0.83-1.09) H 11/15/18 08:36 Problem List - Problems (1) Dehydration Assessment/Plan: ivf Code(s): E86.0 - DEHYDRATION (2) Hyperglycemia Assessment/Plan: on insulin bgms Code(s): R73.9 - HYPERGLYCEMIA, UNSPECIFIED (3) UTI (urinary tract infection) Assessment/Plan: iv abx cxs noted Code(s): N39.0 - URINARY TRACT INFECTION, SITE NOT SPECIFIED (4) Sepsis Assessment/Plan: iv abx cxs noted Code(s): A41.9 - SEPSIS, UNSPECIFIED ORGANISM Qualifiers: Sepsis type: sepsis due to unspecified organism Sepsis acute organ dysfunction status: unspecified Qualified Code(s): A41.9 - Sepsis, unspecified organism
--- NOTE | 2018-11-18 15:09 | PN ---
Progress Note (short form) - Note Progress Note: Feels good melba Febrile during the night Denies any complaints Vital Signs Period Temp Pulse Resp BP Sys/Gastelum Pulse Ox Last 24 Hr 97.9 F-102.1 F 96-112 18-20 105-130/59-89 97-98 PE: AOx3 Neck: Supple, NO JVD HEENT: EOMI Lungs: CTA CVS: S1S2 Abd: Benign Ext: No edema Neuro: No focal deficit CMP Sodium 141 mmol/L (136-145) 11/17/18 05:24 Potassium 3.1 mmol/L (3.5-5.1) L 11/17/18 05:24 Chloride 110 mmol/L (98-107) H 11/17/18 05:24 Carbon Dioxide 22 mmol/L (21-32) 11/17/18 05:24 Anion Gap 9 MMOL/L (8-16) 11/17/18 05:24 BUN 2.5 mg/dL (7-18) L* 11/17/18 05:24 Creatinine 0.3 mg/dL (0.55-1.3) L 11/17/18 05:24 Est GFR (CKD-EPI)AfAm 162.53 11/17/18 05:24 Est GFR (CKD-EPI)NonAf 140.23 11/17/18 05:24 POC Glucometer 216 UNITS (80-120) 11/18/18 12:07 Random Glucose 178 mg/dL (74-106) H 11/17/18 05:24 Hemoglobin A1c % 13.3 % (4.2-6.3) H 11/15/18 13:50 Lactic Acid 1.6 mmol/L (0.4-2.0) 11/15/18 09:02 Calcium 8.0 mg/dL (8.5-10.1) L 11/17/18 05:24 Phosphorus 1.5 mg/dL (2.5-4.9) L 11/17/18 05:24 Magnesium 1.8 mg/dL (1.8-2.4) 11/17/18 05:24 Total Bilirubin 0.8 mg/dL (0.2-1) 11/17/18 05:24 AST 73 U/L (15-37) H 11/17/18 05:24 ALT 53 U/L (13-61) 11/17/18 05:24 Alkaline Phosphatase 150 U/L (45-117) H 11/17/18 05:24 Troponin I < 0.02 ng/ml (0.00-0.05) 11/16/18 19:30 Total Protein 5.1 g/dl (6.4-8.2) L 11/17/18 05:24 Albumin 2.4 g/dl (3.4-5.0) L 11/17/18 05:24 Beta-Hydroxybutyrate 26.1 mg/dL (0.2-2.8) H 11/15/18 08:36 Serum , Qual Negative 11/15/18 08:36 Current Medications Generic Name Dose Route Start Last Admin Trade Name Freq PRN Reason Stop Dose Admin Acetaminophen 650 mg 11/17/18 20:05 11/18/18 11:39 Tylenol - PO 650 mg Q6H PRN Administration PAIN Albuterol Sulfate 1 amp 11/17/18 20:05 Ventolin 0.083% Nebulizer Soln - NEB Q4H PRN SHORT OF BREATH/WHEEZING Heparin Sodium (Porcine) 5,000 unit 11/17/18 22:00 11/18/18 13:50 Heparin - SQ 5,000 unit TID PHILLIP Administration Piperacillin Sod/Tazobactam 50 mls @ 100 mls/hr 11/18/18 02:00 11/18/18 09:08 Sod 3.375 gm/ Dextrose IVPB 100 mls/hr Q8H-IV PHILLIP Administration Protocol Insulin Aspart 1 vial 11/17/18 22:00 11/18/18 12:05 Novolog Vial Sliding Scale - SQ 4 units ACHS PHILLIP Administration Protocol Insulin Detemir 8 units 11/17/18 22:00 11/17/18 22:13 Levemir Vial SQ 8 units HS PHILLIP Administration Multivitamins/Minerals/Vitamin C 1 tab 11/17/18 13:45 11/18/18 09:09 Tab-A-Vit - PO 1 tab DAILY PHILLIP Administration A/P Sepsis due to a source DM Uncontrolled: A1c 13.3 Asthma S/P unresponsiveness IV hydration as necessary O2 as needed BGM QACHS Levemir 8 units Daily Novolog SS coverage Will F/u
--- NOTE | 2018-11-18 17:57 | PN ---
Progress Note, Physician History of Present Illness: Pt seen and examined. Chart reviewed. Febrile last night 102.1F but afebrile so far today. States she feels better. Lower abd pain resolved. Denies flank pain. No other complaints at this time. - Current Medication List Current Medications: Active Medications Acetaminophen (Tylenol -) 650 mg PO Q6H PRN PRN Reason: PAIN Last Admin: 11/18/18 11:39 Dose: 650 mg Albuterol Sulfate (Ventolin 0.083% Nebulizer Soln -) 1 amp NEB Q4H PRN PRN Reason: SHORT OF BREATH/WHEEZING Heparin Sodium (Porcine) (Heparin -) 5,000 unit SQ TID PHILLIP Last Admin: 11/18/18 13:50 Dose: 5,000 unit Piperacillin Sod/Tazobactam (Sod 3.375 gm/ Dextrose) 50 mls @ 100 mls/hr IVPB Q8H-IV PHILLIP; Protocol Last Admin: 11/18/18 17:16 Dose: 100 mls/hr Insulin Aspart (Novolog Vial Sliding Scale -) 1 vial SQ ACHS PHILLIP; Protocol Last Admin: 11/18/18 17:16 Dose: 6 units Insulin Detemir (Levemir Vial) 8 units SQ HS PHILLIP Last Admin: 11/17/18 22:13 Dose: 8 units Multivitamins/Minerals/Vitamin C (Tab-A-Vit -) 1 tab PO DAILY PHILLIP Last Admin: 11/18/18 09:09 Dose: 1 tab - Objective Vital Signs: Vital Signs Temperature 98.0 F 11/18/18 14:00 Pulse Rate 94 H 11/18/18 14:00 Respiratory Rate 18 11/18/18 14:00 Blood Pressure 112/68 11/18/18 14:00 O2 Sat by Pulse Oximetry (%) 98 11/18/18 09:00 Constitutional: Yes: No Distress, Calm Cardiovascular: Yes: Regular Rate and Rhythm Respiratory: Yes: CTA Bilaterally Gastrointestinal: Yes: Normal Bowel Sounds, Soft Genitourinary: Yes: WNL Musculoskeletal: Yes: WNL Extremities: Yes: WNL Edema: No Peripheral Pulses WNL: Yes Integumentary: Yes: WNL Neurological: Yes: Alert, Oriented Labs: CBC, BMP 11/17/18 05:24 11/17/18 05:24 INR, PTT INR 1.34 (0.83-1.09) H 11/15/18 08:36 Microbiology 11/15/18 08:30 Blood - Peripheral Venous Blood Culture - Preliminary NO GROWTH OBTAINED AFTER 72 HOURS, INCUBATION TO CONTINUE FOR 2 DAYS. 11/15/18 09:03 Urine - Urine Clean Catch Urine Culture - Preliminary Escherichia Coli Lactose Fermenting Neg Bacilli 11/15/18 08:36 Blood - Peripheral Venous Blood Culture - Final Escherichia Coli 11/15/18 14:54 Urine - Urine Prabhakar Urine Culture - Final NO GROWTH OBTAINED - ....Imaging Cat Scan: Report Reviewed Problem List - Problems (1) Hyperglycemia Code(s): R73.9 - HYPERGLYCEMIA, UNSPECIFIED (2) Sepsis Code(s): A41.9 - SEPSIS, UNSPECIFIED ORGANISM Qualifiers: Sepsis type: sepsis due to unspecified organism Sepsis acute organ dysfunction status: unspecified Qualified Code(s): A41.9 - Sepsis, unspecified organism (3) UTI (urinary tract infection) Code(s): N39.0 - URINARY TRACT INFECTION, SITE NOT SPECIFIED Assessment/Plan Sepsis E. coli bacteremia UTI Uncontrolled DM s/p Unresponsiveness -- Pt febrile last night, reports feeling better -- Antibiotics switched to Zosyn, continue for now -- Repeat blood cultures -- continue monitor temperature trend , if fever persists suggest renal sonogram
[2018-11-18] MEDS: INSULIN (LEVEMIR) 100 UNITS/ML UNITS SQ SCH (21:45)
[2018-11-19] MEDS ORDERED: PIPERACILLIN/TAZOBACTAM 3.375 GM VIAL IVPB ONE ×3 (01:05→18:07)
[2018-11-19] MEDS ORDERED: DEXTROSE 5%-WATER - 50 ML IVPB ONE ×3 (01:05→18:07)
[2018-11-19] MEDS: PIPERACILLIN/TAZOB 3.375 GM 3.375 GM in DEXTROSE 5%-WATER - 50 ML IVPB SCH ×3 (01:31→18:15)
[2018-11-19] MEDS: HEPARIN NA (PORCINE) 5,000 UNITS/ML 1ML VIAL SQ SCH ×3 (06:20→21:39)
[2018-11-19] MEDS: INSULIN SLIDING SCALE (NOVOLOG) 1 VIAL SQ SCH ×4 (06:22→21:44)
[2018-11-19] MEDS: MULTIVITAMINS (DAILY MVI) TABLET (FP) PO SCH (09:14)
--- NOTE | 2018-11-19 11:59 | PN ---
Progress Note (short form) - Note Progress Note: Resting in NAD. Feels better. No CP or SOB. OBJECTIVE: Intake & Output 11/16/18 11/17/18 11/18/18 11/19/18 23:59 23:59 23:59 23:59 Intake Total 3150 3715 950 550 Output Total 6350 700 Balance -3200 3015 950 550 Weight 128 lb Last Vital Signs Temp Pulse Resp BP Pulse Ox 98.5 F 94 H 19 112/67 98 11/19/18 10:00 11/19/18 10:00 11/19/18 10:00 11/19/18 10:00 11/18/18 21:00 Active Medications Acetaminophen (Tylenol -) 650 mg PO Q6H PRN PRN Reason: PAIN Last Admin: 11/18/18 11:39 Dose: 650 mg Albuterol Sulfate (Ventolin 0.083% Nebulizer Soln -) 1 amp NEB Q4H PRN PRN Reason: SHORT OF BREATH/WHEEZING Heparin Sodium (Porcine) (Heparin -) 5,000 unit SQ TID PHILLIP Last Admin: 11/19/18 06:20 Dose: 5,000 unit Piperacillin Sod/Tazobactam (Sod 3.375 gm/ Dextrose) 50 mls @ 100 mls/hr IVPB Q8H-IV PHILLIP; Protocol Last Admin: 11/19/18 09:13 Dose: 100 mls/hr Insulin Aspart (Novolog Vial Sliding Scale -) 1 vial SQ ACHS PHILLIP; Protocol Last Admin: 11/19/18 06:22 Dose: 4 units Insulin Detemir (Levemir Vial) 8 units SQ HS PHILLIP Last Admin: 11/18/18 21:45 Dose: 8 units Multivitamins/Minerals/Vitamin C (Tab-A-Vit -) 1 tab PO DAILY PHILLIP Last Admin: 11/19/18 09:14 Dose: 1 tab GENERAL: The patient is awake, alert, and oriented, in no acute distress. HEAD: Normal with no signs of trauma. EYES: PERRL, extraocular movements intact, sclera anicteric, conjunctiva clear. No ptosis. ENT: Ears normal, nares patent, oropharynx clear without exudates, moist mucous membranes. NECK: Trachea midline, full range of motion, supple. LUNGS: Breath sounds equal, clear to auscultation bilaterally, no wheezes, no crackles HEART: Regular rate and rhythm, S1, S2 without murmur, rub or gallop. ABDOMEN: Soft, nontender, nondistended, normoactive bowel sounds, no guarding, no rebound, no hepatosplenomegaly, no masses. EXTREMITIES: 2+ pulses, warm, well-perfused, no edema. NEUROLOGICAL: non-focal PSYCH: Normal mood, normal affect. SKIN: Warm, dry, normal turgor, no rashes or lesions noted Laboratory Results - last 24 hr 11/18/18 11/18/18 11/18/18 12:07 16:45 21:38 POC Glucometer 216 272 275 11/19/18 06:21 POC Glucometer 212 ASSESSMENT/PLAN: Sepsis due to a source IDDM Asthma S/P unresponsiveness IVF O2 as needed Follow final cultures Follow I & O VTE prophylaxis Glycemic coverage Dr Lama
--- NOTE | 2018-11-19 13:15 | PN ---
Progress Note (short form) - Note Progress Note: Feels good No complaints Vital Signs Period Temp Pulse Resp BP Sys/Gastelum Pulse Ox Last 24 Hr 98.0 F-98.5 F 82-94 18-20 101-118/64-69 98 PE: AOx3 Neck: Supple, NO JVD HEENT: EOMI Lungs: CTA CVS: S1S2 Abd: Benign Ext: No edema Neuro: No focal deficit CMP Sodium 141 mmol/L (136-145) 11/17/18 05:24 Potassium 3.1 mmol/L (3.5-5.1) L 11/17/18 05:24 Chloride 110 mmol/L (98-107) H 11/17/18 05:24 Carbon Dioxide 22 mmol/L (21-32) 11/17/18 05:24 Anion Gap 9 MMOL/L (8-16) 11/17/18 05:24 BUN 2.5 mg/dL (7-18) L* 11/17/18 05:24 Creatinine 0.3 mg/dL (0.55-1.3) L 11/17/18 05:24 Est GFR (CKD-EPI)AfAm 162.53 11/17/18 05:24 Est GFR (CKD-EPI)NonAf 140.23 11/17/18 05:24 POC Glucometer 296 UNITS (80-120) 11/19/18 12:23 Random Glucose 178 mg/dL (74-106) H 11/17/18 05:24 Hemoglobin A1c % 13.3 % (4.2-6.3) H 11/15/18 13:50 Lactic Acid 1.6 mmol/L (0.4-2.0) 11/15/18 09:02 Calcium 8.0 mg/dL (8.5-10.1) L 11/17/18 05:24 Phosphorus 1.5 mg/dL (2.5-4.9) L 11/17/18 05:24 Magnesium 1.8 mg/dL (1.8-2.4) 11/17/18 05:24 Total Bilirubin 0.8 mg/dL (0.2-1) 11/17/18 05:24 AST 73 U/L (15-37) H 11/17/18 05:24 ALT 53 U/L (13-61) 11/17/18 05:24 Alkaline Phosphatase 150 U/L (45-117) H 11/17/18 05:24 Troponin I < 0.02 ng/ml (0.00-0.05) 11/16/18 19:30 Total Protein 5.1 g/dl (6.4-8.2) L 11/17/18 05:24 Albumin 2.4 g/dl (3.4-5.0) L 11/17/18 05:24 Beta-Hydroxybutyrate 26.1 mg/dL (0.2-2.8) H 11/15/18 08:36 Serum , Qual Negative 11/15/18 08:36 Current Medications Generic Name Dose Route Start Last Admin Trade Name Freq PRN Reason Stop Dose Admin Acetaminophen 650 mg 11/17/18 20:05 11/18/18 11:39 Tylenol - PO 650 mg Q6H PRN Administration PAIN Albuterol Sulfate 1 amp 11/17/18 20:05 Ventolin 0.083% Nebulizer Soln - NEB Q4H PRN SHORT OF BREATH/WHEEZING Heparin Sodium (Porcine) 5,000 unit 11/17/18 22:00 11/19/18 06:20 Heparin - SQ 5,000 unit TID PHILLIP Administration Piperacillin Sod/Tazobactam 50 mls @ 100 mls/hr 11/18/18 02:00 11/19/18 09:13 Sod 3.375 gm/ Dextrose IVPB 100 mls/hr Q8H-IV PHILLIP Administration Protocol Insulin Aspart 1 vial 11/17/18 22:00 11/19/18 12:26 Novolog Vial Sliding Scale - SQ 6 units ACHS PHILLIP Administration Protocol Insulin Detemir 8 units 11/17/18 22:00 11/18/18 21:45 Levemir Vial SQ 8 units HS PHILLIP Administration Multivitamins/Minerals/Vitamin C 1 tab 11/17/18 13:45 11/19/18 09:14 Tab-A-Vit - PO 1 tab DAILY PHILLIP Administration A/P Sepsis due to a source DM Uncontrolled: A1c 13.3 Asthma S/P unresponsiveness IV hydration as necessary O2 as needed BGM QACHS Increase Levemir 8 units Daily INcrease Novolog SS coverage Will F/u
--- NOTE | 2018-11-19 14:13 | PN ---
Progress Note, Physician History of Present Illness: Pt is feeling better. Fevers resolved. Has no complaints. - Current Medication List Current Medications: Active Medications Acetaminophen (Tylenol -) 650 mg PO Q6H PRN PRN Reason: PAIN Last Admin: 11/18/18 11:39 Dose: 650 mg Albuterol Sulfate (Ventolin 0.083% Nebulizer Soln -) 1 amp NEB Q4H PRN PRN Reason: SHORT OF BREATH/WHEEZING Heparin Sodium (Porcine) (Heparin -) 5,000 unit SQ TID PHILLIP Last Admin: 11/19/18 06:20 Dose: 5,000 unit Piperacillin Sod/Tazobactam (Sod 3.375 gm/ Dextrose) 50 mls @ 100 mls/hr IVPB Q8H-IV [facility]ILLIP; Protocol Last Admin: 11/19/18 09:13 Dose: 100 mls/hr Insulin Aspart (Novolog Vial Sliding Scale -) 1 vial SQ TIDAC PHILLIP; Protocol Insulin Aspart (Novolog) 0 units SQ HS PHILLIP; Protocol Insulin Detemir (Levemir Vial) 10 units SQ HS PHILLIP Multivitamins/Minerals/Vitamin C (Tab-A-Vit -) 1 tab PO DAILY PHILLIP Last Admin: 11/19/18 09:14 Dose: 1 tab - Objective Vital Signs: Vital Signs Temperature 98.5 F 11/19/18 10:00 Pulse Rate 94 H 11/19/18 10:00 Respiratory Rate 19 11/19/18 10:00 Blood Pressure 112/67 11/19/18 10:00 O2 Sat by Pulse Oximetry (%) 98 11/18/18 21:00 Constitutional: Yes: No Distress, Calm Cardiovascular: Yes: Regular Rate and Rhythm Respiratory: Yes: CTA Bilaterally Gastrointestinal: Yes: Normal Bowel Sounds, Soft Genitourinary: Yes: WNL Extremities: Yes: WNL Edema: No Integumentary: Yes: WNL Neurological: Yes: Alert, Oriented Labs: CBC, BMP 11/17/18 05:24 11/17/18 05:24 INR, PTT INR 1.34 (0.83-1.09) H 11/15/18 08:36 Microbiology 11/15/18 08:30 Blood - Peripheral Venous Blood Culture - Preliminary NO GROWTH OBTAINED AFTER 96 HOURS, INCUBATION TO CONTINUE FOR 1 DAYS. 11/15/18 09:03 Urine - Urine Clean Catch Urine Culture - Preliminary Escherichia Coli Lactose Fermenting Neg Bacilli 11/15/18 08:36 Blood - Peripheral Venous Blood Culture - Final Escherichia Coli 11/15/18 14:54 Urine - Urine Prabhakar Urine Culture - Final NO GROWTH OBTAINED Problem List - Problems (1) Hyperglycemia Code(s): R73.9 - HYPERGLYCEMIA, UNSPECIFIED (2) Sepsis Code(s): A41.9 - SEPSIS, UNSPECIFIED ORGANISM Qualifiers: Sepsis type: sepsis due to unspecified organism Sepsis acute organ dysfunction status: unspecified Qualified Code(s): A41.9 - Sepsis, unspecified organism (3) UTI (urinary tract infection) Code(s): N39.0 - URINARY TRACT INFECTION, SITE NOT SPECIFIED Assessment/Plan Sepsis E. coli bacteremia UTI Uncontrolled DM s/p Unresponsiveness -- continue Zosyn, pt now afebrile -- Repeat blood culture results pending -- continue monitor , currently stable
--- NOTE | 2018-11-19 16:52 | PN ---
Progress Note, Physician - Current Medication List Current Medications: Active Medications Acetaminophen (Tylenol -) 650 mg PO Q6H PRN PRN Reason: PAIN Last Admin: 11/18/18 11:39 Dose: 650 mg Albuterol Sulfate (Ventolin 0.083% Nebulizer Soln -) 1 amp NEB Q4H PRN PRN Reason: SHORT OF BREATH/WHEEZING Heparin Sodium (Porcine) (Heparin -) 5,000 unit SQ TID PHILLIP Last Admin: 11/19/18 14:13 Dose: 5,000 unit Piperacillin Sod/Tazobactam (Sod 3.375 gm/ Dextrose) 50 mls @ 100 mls/hr IVPB Q8H-IV [facility]ILLIP; Protocol Last Admin: 11/19/18 09:13 Dose: 100 mls/hr Insulin Aspart (Novolog Vial Sliding Scale -) 1 vial SQ TIDAC PHILLIP; Protocol Last Admin: 11/19/18 16:40 Dose: 8 units Insulin Aspart (Novolog Vial Sliding Scale -) 1 vial SQ HS PHILLIP; Protocol Insulin Detemir (Levemir Vial) 10 units SQ HS PHILLIP Multivitamins/Minerals/Vitamin C (Tab-A-Vit -) 1 tab PO DAILY PHILLIP Last Admin: 11/19/18 09:14 Dose: 1 tab - Objective Vital Signs: Vital Signs Temperature 98.6 F 11/19/18 16:20 Pulse Rate 104 H 11/19/18 16:20 Respiratory Rate 20 11/19/18 16:20 Blood Pressure 129/74 11/19/18 16:20 O2 Sat by Pulse Oximetry (%) 96 11/19/18 09:00 Constitutional: Yes: No Distress HENT: Yes: Atraumatic Neck: Yes: Supple Cardiovascular: Yes: Regular Rate and Rhythm Respiratory: Yes: CTA Bilaterally Gastrointestinal: Yes: Normal Bowel Sounds Extremities: Yes: WNL Neurological: Yes: Alert, Oriented Labs: CBC, BMP 11/17/18 05:24 11/17/18 05:24 INR, PTT INR 1.34 (0.83-1.09) H 11/15/18 08:36 Problem List - Problems (1) Dehydration Assessment/Plan: ivf Code(s): E86.0 - DEHYDRATION (2) Hyperglycemia Assessment/Plan: on insulin bgms Code(s): R73.9 - HYPERGLYCEMIA, UNSPECIFIED (3) UTI (urinary tract infection) Assessment/Plan: iv abx cxs noted Code(s): N39.0 - URINARY TRACT INFECTION, SITE NOT SPECIFIED (4) Sepsis Assessment/Plan: iv abx cxs pending Code(s): A41.9 - SEPSIS, UNSPECIFIED ORGANISM Qualifiers: Sepsis type: sepsis due to unspecified organism Sepsis acute organ dysfunction status: unspecified Qualified Code(s): A41.9 - Sepsis, unspecified organism
[2018-11-19] MEDS: INSULIN (LEVEMIR) 100 UNITS/ML UNITS SQ SCH (21:40)
[2018-11-20] MEDS ORDERED: PIPERACILLIN/TAZOBACTAM 3.375 GM VIAL IVPB ONE ×3 (00:49→17:28)
[2018-11-20] MEDS ORDERED: DEXTROSE 5%-WATER - 50 ML IVPB ONE ×3 (00:49→17:28)
[2018-11-20] MEDS: PIPERACILLIN/TAZOB 3.375 GM 3.375 GM in DEXTROSE 5%-WATER - 50 ML IVPB SCH ×3 (02:17→17:23)
[2018-11-20] MEDS: HEPARIN NA (PORCINE) 5,000 UNITS/ML 1ML VIAL SQ SCH ×3 (06:17→21:13)
[2018-11-20] MEDS: INSULIN SLIDING SCALE (NOVOLOG) 1 VIAL SQ SCH ×4 (06:17→21:13)
--- NOTE | 2018-11-20 11:17 | PN ---
Progress Note (short form) - Note Progress Note: Resting in NAD. Feels better. No CP or SOB. OBJECTIVE: Intake & Output 11/17/18 11/18/18 11/19/18 11/20/18 23:59 23:59 23:59 23:59 Intake Total 3715 950 1860 450 Output Total 700 Balance 3015 950 1860 450 Weight 128 lb Last Vital Signs Temp Pulse Resp BP Pulse Ox 98.4 F 94 H 20 134/72 96 11/20/18 10:59 11/20/18 11:01 11/20/18 10:59 11/20/18 11:08 11/19/18 21:00 Active Medications Acetaminophen (Tylenol -) 650 mg PO Q6H PRN PRN Reason: PAIN Last Admin: 11/18/18 11:39 Dose: 650 mg Albuterol Sulfate (Ventolin 0.083% Nebulizer Soln -) 1 amp NEB Q4H PRN PRN Reason: SHORT OF BREATH/WHEEZING Heparin Sodium (Porcine) (Heparin -) 5,000 unit SQ TID PHILLIP Last Admin: 11/20/18 06:17 Dose: 5,000 unit Piperacillin Sod/Tazobactam (Sod 3.375 gm/ Dextrose) 50 mls @ 100 mls/hr IVPB Q8H-IV PHILLIP; Protocol Last Admin: 11/20/18 02:17 Dose: 100 mls/hr Insulin Aspart (Novolog Vial Sliding Scale -) 1 vial SQ TIDAC PHILLIP; Protocol Last Admin: 11/20/18 06:17 Dose: 6 units Insulin Aspart (Novolog Vial Sliding Scale -) 1 vial SQ HS PHILLIP; Protocol Last Admin: 11/19/18 21:44 Dose: 6 units Insulin Detemir (Levemir Vial) 10 units SQ HS PHILLIP Last Admin: 11/19/18 21:40 Dose: 10 units Multivitamins/Minerals/Vitamin C (Tab-A-Vit -) 1 tab PO DAILY PHILLIP Last Admin: 11/19/18 09:14 Dose: 1 tab GENERAL: The patient is awake, alert, and oriented, in no acute distress. HEAD: Normal with no signs of trauma. EYES: PERRL, extraocular movements intact, sclera anicteric, conjunctiva clear. No ptosis. ENT: Ears normal, nares patent, oropharynx clear without exudates, moist mucous membranes. NECK: Trachea midline, full range of motion, supple. LUNGS: Breath sounds equal, clear to auscultation bilaterally, no wheezes, no crackles HEART: Regular rate and rhythm, S1, S2 without murmur, rub or gallop. ABDOMEN: Soft, nontender, nondistended, normoactive bowel sounds, no guarding, no rebound, no hepatosplenomegaly, no masses. EXTREMITIES: 2+ pulses, warm, well-perfused, no edema. NEUROLOGICAL: non-focal PSYCH: Normal mood, normal affect. SKIN: Warm, dry, normal turgor, no rashes or lesions noted Laboratory Results - last 24 hr 11/19/18 11/19/18 11/19/18 12:23 16:36 21:42 POC Glucometer 296 268 327 11/20/18 11/20/18 06:10 11:12 POC Glucometer 230 264 ASSESSMENT/PLAN: Sepsis due to a source IDDM Asthma S/P unresponsiveness ABX per ID O2 as needed VTE prophylaxis Glycemic coverage Dr Lama
--- NOTE | 2018-11-20 11:34 | PN ---
Progress Note, Physician History of Present Illness: stable no new issues - Current Medication List Current Medications: Active Medications Acetaminophen (Tylenol -) 650 mg PO Q6H PRN PRN Reason: PAIN Last Admin: 11/18/18 11:39 Dose: 650 mg Albuterol Sulfate (Ventolin 0.083% Nebulizer Soln -) 1 amp NEB Q4H PRN PRN Reason: SHORT OF BREATH/WHEEZING Heparin Sodium (Porcine) (Heparin -) 5,000 unit SQ TID PHILLIP Last Admin: 11/20/18 06:17 Dose: 5,000 unit Piperacillin Sod/Tazobactam (Sod 3.375 gm/ Dextrose) 50 mls @ 100 mls/hr IVPB Q8H-IV [facility]ILLIP; Protocol Last Admin: 11/20/18 02:17 Dose: 100 mls/hr Insulin Aspart (Novolog Vial Sliding Scale -) 1 vial SQ TIDAC PHILLIP; Protocol Last Admin: 11/20/18 06:17 Dose: 6 units Insulin Aspart (Novolog Vial Sliding Scale -) 1 vial SQ HS PHILLIP; Protocol Last Admin: 11/19/18 21:44 Dose: 6 units Insulin Detemir (Levemir Vial) 10 units SQ HS PHILLIP Last Admin: 11/19/18 21:40 Dose: 10 units Multivitamins/Minerals/Vitamin C (Tab-A-Vit -) 1 tab PO DAILY PHILLIP Last Admin: 11/19/18 09:14 Dose: 1 tab - Objective Vital Signs: Vital Signs Temperature 98.4 F 11/20/18 10:59 Pulse Rate 94 H 11/20/18 11:01 Respiratory Rate 20 11/20/18 10:59 Blood Pressure 134/72 11/20/18 11:08 O2 Sat by Pulse Oximetry (%) 96 11/19/18 21:00 Constitutional: Yes: No Distress, Calm Cardiovascular: Yes: S1, S2 Respiratory: Yes: Regular, CTA Bilaterally Gastrointestinal: Yes: Normal Bowel Sounds, Soft Musculoskeletal: Yes: WNL Extremities: Yes: WNL Neurological: Yes: Alert, Oriented Psychiatric: Yes: Alert, Oriented Labs: CBC, BMP 11/17/18 05:24 11/17/18 05:24 INR, PTT INR 1.34 (0.83-1.09) H 11/15/18 08:36 Assessment/Plan Problem List - Problems (1) Dehydration Code(s): E86.0 - DEHYDRATION (2) Hyperglycemia Code(s): R73.9 - HYPERGLYCEMIA, UNSPECIFIED (3) UTI (urinary tract infection) Code(s): N39.0 - URINARY TRACT INFECTION, SITE NOT SPECIFIED (4) Sepsis Code(s): A41.9 - SEPSIS, UNSPECIFIED ORGANISM Qualifiers: Sepsis type: sepsis due to unspecified organism Sepsis acute organ dysfunction status: unspecified Qualified Code(s): A41.9 - Sepsis, unspecified organism 5 gm negative bacteremia plan continue abx can stop abx after todays dose can be d/[place] tomorrow rest as per the team
[2018-11-20] MEDS: MULTIVITAMINS (DAILY MVI) TABLET (FP) PO SCH (11:43)
--- NOTE | 2018-11-20 19:08 | PN ---
Progress Note, Physician - Current Medication List Current Medications: Active Medications Acetaminophen (Tylenol -) 650 mg PO Q6H PRN PRN Reason: PAIN Last Admin: 11/18/18 11:39 Dose: 650 mg Albuterol Sulfate (Ventolin 0.083% Nebulizer Soln -) 1 amp NEB Q4H PRN PRN Reason: SHORT OF BREATH/WHEEZING Heparin Sodium (Porcine) (Heparin -) 5,000 unit SQ TID PHILLIP Last Admin: 11/20/18 14:23 Dose: 5,000 unit Piperacillin Sod/Tazobactam (Sod 3.375 gm/ Dextrose) 50 mls @ 100 mls/hr IVPB Q8H-IV PHILLIP; Protocol Last Admin: 11/20/18 17:23 Dose: 100 mls/hr Insulin Aspart (Novolog Vial Sliding Scale -) 1 vial SQ TIDAC PHILLIP; Protocol Last Admin: 11/20/18 17:22 Dose: 10 units Insulin Aspart (Novolog Vial Sliding Scale -) 1 vial SQ HS PHILLIP; Protocol Last Admin: 11/19/18 21:44 Dose: 6 units Insulin Detemir (Levemir Vial) 10 units SQ HS PHILLIP Last Admin: 11/19/18 21:40 Dose: 10 units Multivitamins/Minerals/Vitamin C (Tab-A-Vit -) 1 tab PO DAILY PHILLIP Last Admin: 11/20/18 11:43 Dose: 1 tab - Objective Vital Signs: Vital Signs Temperature 97.9 F 11/20/18 18:00 Pulse Rate 96 H 11/20/18 18:00 Respiratory Rate 20 11/20/18 18:00 Blood Pressure 121/70 11/20/18 18:00 O2 Sat by Pulse Oximetry (%) 96 11/20/18 09:00 Constitutional: Yes: No Distress HENT: Yes: Atraumatic Neck: Yes: Supple Cardiovascular: Yes: Regular Rate and Rhythm Respiratory: Yes: CTA Bilaterally Gastrointestinal: Yes: Normal Bowel Sounds Extremities: Yes: WNL Neurological: Yes: Alert, Oriented Labs: CBC, BMP 11/17/18 05:24 11/17/18 05:24 INR, PTT INR 1.34 (0.83-1.09) H 11/15/18 08:36 Problem List - Problems (1) Dehydration Code(s): E86.0 - DEHYDRATION (2) Hyperglycemia Assessment/Plan: on insulin bgms Code(s): R73.9 - HYPERGLYCEMIA, UNSPECIFIED (3) UTI (urinary tract infection) Assessment/Plan: iv abx cxs noted Code(s): N39.0 - URINARY TRACT INFECTION, SITE NOT SPECIFIED (4) Sepsis Assessment/Plan: iv abx cxs noted Code(s): A41.9 - SEPSIS, UNSPECIFIED ORGANISM Qualifiers: Sepsis type: sepsis due to unspecified organism Sepsis acute organ dysfunction status: unspecified Qualified Code(s): A41.9 - Sepsis, unspecified organism
[2018-11-20 20:20] VITALS: PULSE 95
[2018-11-20] MEDS: INSULIN (LEVEMIR) 100 UNITS/ML UNITS SQ SCH (21:17)
[2018-11-21] MEDS ORDERED: PIPERACILLIN/TAZOBACTAM 3.375 GM VIAL IVPB ONE ×2 (01:10→09:11)
[2018-11-21] MEDS ORDERED: DEXTROSE 5%-WATER - 50 ML IVPB ONE ×2 (01:10→09:12)
[2018-11-21] MEDS: PIPERACILLIN/TAZOB 3.375 GM 3.375 GM in DEXTROSE 5%-WATER - 50 ML IVPB SCH ×2 (01:24→09:32)
[2018-11-21] MEDS: HEPARIN NA (PORCINE) 5,000 UNITS/ML 1ML VIAL SQ SCH (06:27)
[2018-11-21] MEDS: INSULIN SLIDING SCALE (NOVOLOG) 1 VIAL SQ SCH (06:28)
[2018-11-21] MEDS ORDERED: INSULIN (NOVOLOG) ASPART 100 UNITS/ML 10ML VIAL ONE (06:32)
[2018-11-21 06:37] VITALS: BP 101/55; TEMP 97.9
[2018-11-21 08:01] LABS: BASO % 0.8 % (0-2.0); EOS % 2.4 % (0-4.5); HEMATOCRIT 36.3 % (32.4-45.2); HEMOGLOBIN 12.4 GM/dL (10.7-15.3); MCH 29.3 pg (25.7-33.7); MCHC 34.1 g/dl (32.0-36.0); MEAN CELL VOLUME 85.9 fl (80-96); MEAN PLT VOLUME 8.8 fl (7.5-11.1); MONO % 7.5 % (3.8-10.2); NEUT % 73.3 % (42.8-82.8); PLATELET COUNT 306 K/MM3 (134-434); RBC 4.22 M/mm3 (3.60-5.2); RDW 13.6 % (11.6-15.6); WHITE BLOOD COUNT 8.7 K/mm3 (4.0-10.0)
[2018-11-21 08:26] LABS: BILIRUBIN,TOTAL 0.4 mg/dL (0.2-1); BLOOD UREA NITROGEN 10.6 mg/dL (7-18); CALCIUM 8.9 mg/dL (8.5-10.1); CREATININE 0.6 mg/dL (0.55-1.3); POTASSIUM 4.4 mmol/L (3.5-5.1); TOT PROT 6.9 g/dl (6.4-8.2)
--- NOTE | 2018-11-21 09:25 | PN ---
Progress Note (short form) - Note Progress Note: Feels good No complaints Vital Signs Period Temp Pulse Resp BP Sys/Gastelum Pulse Ox Last 24 Hr 97.9 F-98.4 F 94-99 18-20 94-134/55-72 97 PE: AOx3 Neck: Supple, NO JVD HEENT: EOMI Lungs: CTA CVS: S1S2 Abd: Benign Ext: No edema Neuro: No focal deficit CMP Sodium 135 mmol/L (136-145) L 11/21/18 07:10 Potassium 4.4 mmol/L (3.5-5.1) 11/21/18 07:10 Chloride 101 mmol/L (98-107) 11/21/18 07:10 Carbon Dioxide 26 mmol/L (21-32) 11/21/18 07:10 Anion Gap 8 MMOL/L (8-16) 11/21/18 07:10 BUN 10.6 mg/dL (7-18) 11/21/18 07:10 Creatinine 0.6 mg/dL (0.55-1.3) 11/21/18 07:10 Est GFR (CKD-EPI)AfAm 129.39 11/21/18 07:10 Est GFR (CKD-EPI)NonAf 111.64 11/21/18 07:10 POC Glucometer 317 UNITS (80-120) 11/21/18 05:32 Random Glucose 331 mg/dL (74-106) H 11/21/18 07:10 Hemoglobin A1c % 13.3 % (4.2-6.3) H 11/15/18 13:50 Lactic Acid 1.6 mmol/L (0.4-2.0) 11/15/18 09:02 Calcium 8.9 mg/dL (8.5-10.1) 11/21/18 07:10 Phosphorus 1.5 mg/dL (2.5-4.9) L 11/17/18 05:24 Magnesium 1.8 mg/dL (1.8-2.4) 11/17/18 05:24 Total Bilirubin 0.4 mg/dL (0.2-1) 11/21/18 07:10 AST 95 U/L (15-37) H 11/21/18 07:10 ALT 128 U/L (13-61) H 11/21/18 07:10 Alkaline Phosphatase 355 U/L (45-117) H 11/21/18 07:10 Troponin I < 0.02 ng/ml (0.00-0.05) 11/16/18 19:30 Total Protein 6.9 g/dl (6.4-8.2) 11/21/18 07:10 Albumin 3.0 g/dl (3.4-5.0) L 11/21/18 07:10 Beta-Hydroxybutyrate 26.1 mg/dL (0.2-2.8) H 11/15/18 08:36 Serum , Qual Negative 11/15/18 08:36 Current Medications Generic Name Dose Route Start Last Admin Trade Name Freq PRN Reason Stop Dose Admin Acetaminophen 650 mg 11/17/18 20:05 11/18/18 11:39 Tylenol - PO 650 mg Q6H PRN Administration PAIN Albuterol Sulfate 1 amp 11/17/18 20:05 Ventolin 0.083% Nebulizer Soln - NEB Q4H PRN SHORT OF BREATH/WHEEZING Heparin Sodium (Porcine) 5,000 unit 11/17/18 22:00 11/21/18 06:27 Heparin - SQ 5,000 unit TID PHILLIP Administration Piperacillin Sod/Tazobactam 50 mls @ 100 mls/hr 11/18/18 02:00 11/21/18 01:24 Sod 3.375 gm/ Dextrose IVPB 100 mls/hr Q8H-IV PHILLIP Administration Protocol Insulin Aspart 1 vial 11/19/18 16:30 11/21/18 06:28 Novolog Vial Sliding Scale - SQ 10 units TIDAC PHILLIP Administration Protocol Insulin Aspart 1 vial 11/19/18 22:00 11/20/18 21:13 Novolog Vial Sliding Scale - SQ 4 units HS PHILLIP Administration Protocol Insulin Detemir 10 units 11/19/18 22:00 11/20/18 21:17 Levemir Vial SQ 10 units HS PHILLIP Administration Multivitamins/Minerals/Vitamin C 1 tab 11/17/18 13:45 11/20/18 11:43 Tab-A-Vit - PO 1 tab DAILY PHILLIP Administration A/P Sepsis due to a source DM Uncontrolled: A1c 13.3 Asthma S/P unresponsiveness IV hydration as necessary O2 as needed BGM QACHS Increase Levemir 14 units Daily INcrease Novolog SS coverage Will F/u
[2018-11-21] MEDS ORDERED: INSULIN SLIDING SCALE (NOVOLOG) 1 VIAL SQ SCH (09:27)
[2018-11-21] MEDS: MULTIVITAMINS (DAILY MVI) TABLET (FP) PO SCH (09:32)
--- NOTE | 2018-11-21 19:09 | DS ---
Physical Examination Vital Signs: Vital Signs Temperature 97.9 F 11/21/18 06:00 Pulse Rate 95 H 11/21/18 06:00 Respiratory Rate 18 11/21/18 08:58 Blood Pressure 101/55 L 11/21/18 06:00 O2 Sat by Pulse Oximetry (%) 97 11/21/18 08:58 Constitutional: Yes: No Distress HENT: Yes: Atraumatic Neck: Yes: Supple Cardiovascular: Yes: Regular Rate and Rhythm Respiratory: Yes: CTA Bilaterally Gastrointestinal: Yes: Normal Bowel Sounds Extremities: Yes: WNL Edema: No Neurological: Yes: Alert, Oriented Labs: CBC, BMP 11/21/18 07:10 11/21/18 07:10 Discharge Summary Problems reviewed: Yes Reason For Visit: HYPERGLYCEMIA,SEPSIS Condition: Fair - Instructions Referrals: Liudmila Lee MD [Primary Care Provider] - Erlinda Yuan MD [Staff Physician] - Disposition: HOME - Home Medications Comprehensive Discharge Medication List: Ambulatory Orders Glimepiride 2 mg PO DAILY 10/01/15 metFORMIN HCL [Metformin HCl] 1,000 mg PO BID 10/01/15 Insulin (Levemir) [Levemir Vial] 14 units SQ HS #100 units 11/21/18 Insulin Sliding Scale [Novolog Vial Sliding Scale -] 1 vial SQ TIDAC #100 units 11/21/18 Prescription Drug Monitoring Program (I-STOP) results: I-STOP reviewed and no issues identified
[2018-11-21] MEDS ORDERED: INSULIN (LEVEMIR) 100 UNITS/ML UNITS SQ SCH (22:00)
== END 2018-11-21 11:26 | disposition home or self-care (01) | DRG 720 ==
LOC: JER 07:45 → JERBED 14:54 → JICU 16:07 → J5S 11-17 14:55
PROVIDERS: ADMIT Internal Medicine; ATTEND Internal Medicine
PROC: 05HM33Z Insertion of Infusion Device into Right Internal Jugular Vein, Percutaneous Approach (ICD-10-PCS; principal; 2018-11-15)
DX: A41.51 Sepsis due to Escherichia coli [E. coli] (principal); E11.65 Type 2 diabetes mellitus with hyperglycemia; I24.8 Other forms of acute ischemic heart disease; E86.0 Dehydration; N39.0 Urinary tract infection, site not specified; J45.909 Unspecified asthma, uncomplicated; Z79.84 Long term (current) use of oral hypoglycemic drugs
CPT/HCPCS: 36415; 70450-TC; 71045-TC-FY; 71275-TC; 80048; 80053; 81003; 82010; 82803; 82962; 83036; 83605; 83735; 84100; 84484; 84703; 85025; 85610; 85730; 87040; 87086; 87186; 87389; 93005; 93010; 97116-GP; 97162-GP; 99285-25; J0131; J1644; J7030; Q2036

== ENCOUNTER 2021-05-09 16:22 | Observation (INO) | payer OTHER ==
[2021-05-09 17:11] VITALS: BMI 23.6
[2021-05-09] MEDS ORDERED: SODIUM CHLORIDE 0.9% 500 ML INFUS.BAG IV ONE ×3 (18:32→23:20)
[2021-05-09] MEDS ORDERED: MAG HYDROX/AL HYDROX/SIMETH -MYLANTA- ORAL SUSPENSION PO ONE (18:32)
[2021-05-09] MEDS ORDERED: FAMOTIDINE 20 MG/50 ML IVPB 20 MG/50 ML MG IVPB ONE ×2 (18:32→19:17)
[2021-05-09] MEDS ORDERED: ACETAMINOPHEN 1000 MG/100 ML BAG IVPB ONE (18:32)
[2021-05-09] MEDS ORDERED: MAG HYDROX/AL HYDROX/SIMETH 30 ML UNIT-DOSE CUP ONE (19:17)
[2021-05-09] MEDS ORDERED: ACETAMINOPHEN INJECTION 100 ML IVPB ONE (19:17)
[2021-05-09 19:28] LABS: BASO % 0.5 % (0-2.0); HEMATOCRIT 40.2 % (32.4-45.2); HEMOGLOBIN 13.8 GM/dL (10.7-15.3); LYMPH % 17.7 % (8-40); MCH 29.1 pg (25.7-33.7); MCHC 34.2 g/dl (32.0-36.0); MEAN PLT VOLUME 9.4 fl (7.5-11.1); MONO % 9.2 % (3.8-10.2); NEUT % 71.6 % (42.8-82.8); PLATELET COUNT 305 10^3/uL (134-434); RBC 4.73 M/mm3 (3.60-5.2); RDW 13.3 % (11.6-15.6)
[2021-05-09 19:32] LABS: VENOUS BASE EXCESS -2.9 mmol/L (-2-2); VENOUS O2 SATURATION 93.5 % (70-80); VENOUS PCO2 48.8 mmHg (38-52); VENOUS PH 7.306 (7.310-7.410)
[2021-05-09 19:45] LABS: ALBUMIN 4.2 g/dl (3.4-5.0); BLOOD UREA NITROGEN 17.4 mg/dL (7-18); CALCIUM 10.6 mg/dL (8.5-10.1); MAGNESIUM 1.8 mg/dL (1.8-2.4)
[2021-05-09 19:48] LABS: CREATININE 0.9 mg/dL (0.55-1.3)
[2021-05-09 19:49] LABS: TOT PROT 7.7 g/dl (6.4-8.2)
[2021-05-09 19:50] LABS: BILIRUBIN,TOTAL 0.4 mg/dL (0.2-1)
[2021-05-09 20:04] LABS: LACTIC ACID 2.4 mmol/L (0.4-2.0)
[2021-05-09 23:07] LABS: LACTIC ACID 3.2 mmol/L (0.4-2.0)
[2021-05-10] MEDS ORDERED: LOPERAMIDE HCL 2 MG CAPSULE PO ONE (02:57)
[2021-05-10] MEDS ORDERED: LOPERAMIDE HCL 2 MG CAPSULE ONE ×2 (02:57→03:02)
[2021-05-10] MEDS ORDERED: ACETAMINOPHEN 325 MG TABLET (FP) ONE (03:51)
[2021-05-10] MEDS ORDERED: ACETAMINOPHEN 325 MG TABLET (FP) PO ONE ×2 (04:06→22:53)
[2021-05-10] MEDS ORDERED: LACTATED RINGERS SOLUTION 1,000 ML/1,000 ML INFUS.BAG IV SCH ×2 (04:45→12:41)
[2021-05-10] MEDS: INSULIN SLIDING SCALE (NOVOLOG) 1 VIAL SQ SCH ×4 (07:55→22:01)
[2021-05-10 08:06] LABS: BASO % 0.3 % (0-2.0); EOS % 1.3 % (0-4.5); HEMATOCRIT 34.1 % (32.4-45.2); HEMOGLOBIN 11.6 GM/dL (10.7-15.3); LYMPH % 18.1 % (8-40); MCH 28.8 pg (25.7-33.7); MCHC 33.9 g/dl (32.0-36.0); MEAN PLT VOLUME 9.5 fl (7.5-11.1); MONO % 8.1 % (3.8-10.2); NEUT % 72.2 % (42.8-82.8); PLATELET COUNT 255 10^3/uL (134-434); RBC 4.01 M/mm3 (3.60-5.2); RDW 13.3 % (11.6-15.6); WHITE BLOOD COUNT 6.5 K/mm3 (4.0-10.0)
[2021-05-10 08:17] LABS: BLOOD UREA NITROGEN 7.3 mg/dL (7-18); MAGNESIUM 1.6 mg/dL (1.8-2.4)
[2021-05-10 08:20] LABS: CREATININE 0.4 mg/dL (0.55-1.3); PHOSPHOROUS 3.1 mg/dL (2.5-4.9)
[2021-05-10 08:22] LABS: BILIRUBIN,TOTAL 0.5 mg/dL (0.2-1); TOT PROT 5.8 g/dl (6.4-8.2)
[2021-05-10 08:30] LABS: ALBUMIN 2.8 g/dl (3.4-5.0); CALCIUM 8.1 mg/dL (8.5-10.1)
[2021-05-10] MEDS ORDERED: MAGNESIUM OXIDE 400 MG TABLET (FP) PO ONE (08:45)
[2021-05-10] MEDS ORDERED: MAGNESIUM OXIDE 400 MG TABLET (FP) ONE (08:55)
[2021-05-10] MEDS ORDERED: ENOXAPARIN NA (PORCINE) 40 MG/0.4 ML DISP.SYRIN SQ ONE (08:56)
[2021-05-10 09:39] LABS: URINE APPEARANCE CLEAR; URINE BILIRUBIN NEGATIVE (NEGATIVE); URINE COLOR YELLOW; URINE GLUCOSE (UA) NEGATIVE (NEGATIVE); URINE KETONE NEGATIVE (NEGATIVE); URINE LEUK ESTERASE NEGATIVE (NEGATIVE); URINE NITRITE NEGATIVE (NEGATIVE); URINE PROTEIN NEGATIVE (NEGATIVE); URINE UROBILINOGEN 0.2 mg/dL (0.2-1.0)
[2021-05-10] MEDS ORDERED: ENOXAPARIN NA (PORCINE) 40 MG/0.4 ML DISP.SYRIN SQ SCH (10:00)
[2021-05-10] MEDS ORDERED: cefTRIAXone SODIUM 1 GM VIAL ONE (16:03)
[2021-05-10] MEDS ORDERED: DEXTROSE 5%-WATER - 50 ML IVPB ONE (16:03)
[2021-05-10] MEDS: CEFTRIAXONE 1 GM in DEXTROSE 5%-WATER - 50 ML IVPB SCH (16:08)
[2021-05-10] MEDS: SODIUM CHLORIDE 1,000 ML IV SCH ×2 (16:08→22:52)
[2021-05-11] MEDS: INSULIN SLIDING SCALE (NOVOLOG) 1 VIAL SQ SCH ×3 (06:19→16:34)
[2021-05-11] MEDS: SODIUM CHLORIDE 1,000 ML IV SCH (07:26)
[2021-05-11] MEDS ORDERED: DEXTROSE 5%-WATER - 50 ML IVPB ONE (08:45)
[2021-05-11] MEDS ORDERED: cefTRIAXone SODIUM 1 GM VIAL ONE (08:45)
[2021-05-11 09:03] VITALS: TEMP 98.3
[2021-05-11] MEDS: CEFTRIAXONE 1 GM in DEXTROSE 5%-WATER - 50 ML IVPB SCH (09:07)
[2021-05-11 09:09] LABS: HEMATOCRIT 35.6 % (32.4-45.2); HEMOGLOBIN 12.2 GM/dL (10.7-15.3); MCHC 34.2 g/dl (32.0-36.0); MEAN CELL VOLUME 84.8 fl (80-96); MEAN PLT VOLUME 9.9 fl (7.5-11.1); PLATELET COUNT 270 10^3/uL (134-434); RDW 13.2 % (11.6-15.6)
[2021-05-11 09:13] LABS: BLOOD UREA NITROGEN 3.5 mg/dL (7-18); CALCIUM 8.7 mg/dL (8.5-10.1); MAGNESIUM 1.7 mg/dL (1.8-2.4)
[2021-05-11 09:16] LABS: CREATININE 0.4 mg/dL (0.55-1.3); PHOSPHOROUS 3.4 mg/dL (2.5-4.9)
[2021-05-11 09:17] LABS: TOT PROT 6.8 g/dl (6.4-8.2)
[2021-05-11 09:18] LABS: BILIRUBIN,TOTAL 0.5 mg/dL (0.2-1)
[2021-05-11 09:27] LABS: ALBUMIN 3.5 g/dl (3.4-5.0)
[2021-05-11] MEDS ORDERED: ENOXAPARIN NA (PORCINE) 40 MG/0.4 ML DISP.SYRIN SQ SCH (10:00)
[2021-05-11] MEDS ORDERED: POTASSIUM CHLORIDE TABS 20 MEQ TABLET.ER (FP) PO ONE (13:50)
[2021-05-11 15:20] VITALS: BP 120/76; PULSE 96
== END 2021-05-11 18:53 | disposition home or self-care (01) ==
LOC: JER 16:22 → JERBED 23:23 → UNDOADMOB 23:23 → OBSVTOIN 23:23 → INTOOBSV 23:23 → UNDOADMOB 05-10 04:32 → INTOOBSV 05-10 04:32 → OBSVTOIN 05-10 04:32 → JERBED 05-10 04:32 → J4S 05-10 12:41
PROVIDERS: ADMIT Hospitalist; ATTEND Internal Medicine
PROC: 3E03329 Introduction of Other Anti-infective into Peripheral Vein, Percutaneous Approach (ICD-10-PCS; principal; 2021-05-09)
PROC: 3E023GC Introduction of Other Therapeutic Substance into Muscle, Percutaneous Approach (ICD-10-PCS; 2021-05-09)
PROC: 3E033GC Introduction of Other Therapeutic Substance into Peripheral Vein, Percutaneous Approach (ICD-10-PCS; 2021-05-09)
PROC: 3E013VG Introduction of Insulin into Subcutaneous Tissue, Percutaneous Approach (ICD-10-PCS; 2021-05-09)
PROC: 3E0337Z Introduction of Electrolytic and Water Balance Substance into Peripheral Vein, Percutaneous Approach (ICD-10-PCS; 2021-05-09)
DX: R19.7 Diarrhea, unspecified (principal); R55 Syncope and collapse; E86.1 Hypovolemia; R11.10 Vomiting, unspecified; D64.9 Anemia, unspecified; D57.3 Sickle-cell trait; Z29.9 Encounter for prophylactic measures, unspecified; E87.3 Alkalosis; K80.20 Calculus of gallbladder without cholecystitis without obstruction; E11.9 Type 2 diabetes mellitus without complications; I10 Essential (primary) hypertension; T38.3X6A Underdosing of insulin and oral hypoglycemic [antidiabetic] drugs, initial encounter; Z91.138 Patient's unintentional underdosing of medication regimen for other reason; Z88.8 Allergy status to other drugs, medicaments and biological substances
CPT/HCPCS: 36415; 71045-TC-FY; 74177-TC; 80053; 81003; 82010; 82272; 82803; 82962; 82977; 83036; 83605; 83690; 83735; 84100; 84443; 84484; 84703; 85025; 85027; 93005; 93010; 96361; 96365; 96367; 96372; 99285-25; C9803-CS; G0378; U0003; U0005

== ENCOUNTER 2021-10-16 10:11 | Emergency (ER) | payer OTHER ==
[2021-10-16 10:27] VITALS: BP 115/64; PULSE 88; RESP 17; TEMP 98; BMI 22.8
== END 2021-10-16 13:04 | disposition home or self-care (01) ==
LOC: JERFT 10:11
PROC: 0H99XZZ Drainage of Perineum Skin, External Approach (ICD-10-PCS; principal; 2021-10-16)
DX: L02.215 Cutaneous abscess of perineum (principal)
CPT/HCPCS: 87070; 87077; 87205; 99283-25

== ENCOUNTER 2021-10-18 10:06 | Emergency (ER) | payer OTHER ==
[2021-10-18 10:17] VITALS: BP 105/71; PULSE 81; RESP 16; TEMP 98.1; BMI 30.2
== END 2021-10-18 11:08 | disposition home or self-care (01) ==
LOC: JERFT 10:06
DX: Z48.00 Encounter for change or removal of nonsurgical wound dressing (principal)
CPT/HCPCS: 99281-25